=== PATIENT | male | born 1975 | race Caucasian/White ===

== ENCOUNTER 2017-05-17 11:57 | Inpatient (IN) | payer OTHER ==
[2017-05-17 14:43] VITALS: BMI 21.1
--- NOTE | 2017-05-17 15:04 | HP ---
Admission ROS [facility] Chief Complaint: i am here for rehab from alcohol,cocaine,marijuana,pcp Allergies/Adverse Reactions: Allergies Allergy/AdvReac Type Severity Reaction Status Date / Time shellfish derived Allergy Severe Difficulty Verified 05/17/17 14:40 [Shellfish Derived] Breathing History of Present Illness: this 42 years old male with alcohol,cocaine,cannabis dependence,pcp abused, for rehab,last treatment rehab 05/06 hiv since 1999 nicotine dependence weight loss seeking rehab Exam Limitations: No Limitations - Ebola screening Have you traveled outside of the country in the last 21 days: No Have you had contact with anyone from an Ebola affected area: No Have you been sick,other than usual withdrawal symptoms: No Do you have a fever: No - Review of Systems Constitutional: No Symptoms Reported EENT: reports: No Symptoms Reported, Other (ecchymosis of right orbit with subconjunctival hemorrhage lateral aspct of right eye) Respiratory: reports: Shortness of Breath Cardiac: reports: No Symptoms Reported GI: reports: No Symptoms Reported : reports: No Symptoms Reported Musculoskeletal: reports: No Symptoms Reported Integumentary: reports: No Symptoms Reported Neuro: reports: No Symptoms reported Endocrine: reports: No Symptoms Reported Hematology: reports: No Symptoms Reported, Other (hiv) Psychiatric: reports: No Sypmtoms Reported (bipolar disorder depression), Judgement Intact, Mood/Affect Appropiate, Orientated x3 Patient History - Patient Medical History Hx Anemia: No Hx Asthma: Yes (on albuterol inhaler) Hx Chronic Obstructive Pulmonary Disease (COPD): No Hx Cancer: No Hx Cardiac Disorders: No Hx Congestive Heart Failure: No Hx Hypertension: No Hx Hypercholesterolemia: No Hx Pacemaker: No HX Cerebrovascular Accident: No Hx Seizures: No Hx Dementia: No Hx Diabetes: No Hx Gastrointestinal Disorders: No Hx Liver Disease: No Hx Genitourinary Disorders: No Hx Sexually Transmitted Disorders: No Hx Renal Disease (ESRD): No Hx Thyroid Disease: No Hx Human Immunodeficiency Virus (HIV): Yes (since 1996) Hx Hepatitis C: No Hx Depression: Yes Hx Suicide Attempt: No Hx Bipolar Disorder: No Hx Schizophrenia: No Other Medical History: no sucidal,no homicidal - Patient Surgical History Past Surgical History: No Hx Neurologic Surgery: No Hx Cataract Extraction: No Hx Cardiac Surgery: No Hx Lung Surgery: No Hx Breast Surgery: No Hx Breast Biopsy: No Hx Abdominal Surgery: No Hx Appendectomy: No Hx Cholecystectomy: No Hx Genitourinary Surgery: No Hx Section: No Hx Orthopedic Surgery: No Anesthesia Reaction: No - PPD History Previous Implant?: Yes Documented Results: Negative w/o proof Date: 12/20/11 PPD to be Administered?: Yes - Smoking Cessation Smoking history: Current every day smoker Have you smoked in the past 12 months: Yes Aproximately how many cigarettes per day: 20 Hx Chewing Tobacco Use: No Initiated information on smoking cessation: Yes 'Breaking Loose' booklet given: 05/17/17 - Substances Abused Alcohol Route: Oral Frequency: 3-6 times per week Amount used: 1 P[place]OD[place] Age of first use: 21 Date of Last Use: 05/15/17 PCP Route: Smoking Frequency: Daily Amount used: $20 Age of first use: 37 Date of Last Use: 05/15/17 Crack Route: Smoking Frequency: Daily Amount used: $50 Age of first use: 27 Date of Last Use: 05/15/17 Marijuana/Hashish Route: Smoking Frequency: Daily Amount used: $40 Age of first use: 17 Date of Last Use: 05/16/17 CRYSTAL METH Route: Smoking Frequency: Daily Amount used: $60 Age of first use: 40 Date of Last Use: 05/10/17 Family Disease History - Family Disease History Family History: Denies Admission Physical Exam BHS - Vital Signs Vital Signs: Vital Signs - 24 hr 05/17/17 14:42 Temperature 97.4 F L Pulse Rate 101 H Respiratory 20 Rate Blood Pressure 115/77 - Physical General Appearance: Yes: Within Normal Limits HEENTM: Yes: BRANNON, Pharynx Normal, Other (ecchymosir of right orbit subconjunctival hemorrhage of laterl aspect of right eye) Respiratory: Yes: Wheezing Neck: Yes: Within Normal Limits, Supple, Trachea in good position Breast: Yes: Within Normal Limits Cardiology: Yes: Within Normal Limits, Regular Rhythm, Regular Rate, S1, S2 Abdominal: Yes: Within Normal Limits, Normal Bowel Sounds, Non Tender, Soft Genitourinary: Yes: Within Normal Limits Back: Yes: Within Normal Limits Musculoskeletal: Yes: full range of Motion, Back pain, Muscle Pain Extremities: Yes: Within Normal Limits Neurological: Yes: wall taper II-XII NML intact, Fully Oriented, Alert, Motor Strength 5/5 Integumentary: Yes: Within Normal Limits Lymphatic: Yes: Within Normal Limits - Diagnostic (1) Alcohol dependence Current Visit: Yes Status: Acute (2) Cocaine dependence Current Visit: Yes Status: Acute (3) Cannabis dependence Current Visit: Yes Status: Acute (4) PCP abuse Current Visit: Yes Status: Acute (5) HIV (human immunodeficiency virus infection) Current Visit: Yes Status: Acute (6) Weight loss Current Visit: Yes Status: Acute (7) Bipolar disorder Current Visit: Yes Status: Acute (8) Depression Current Visit: Yes Status: Acute (9) Traumatic ecchymosis of right orbit Current Visit: Yes Status: Acute (10) Subconjunctival hemorrhage of right eye Current Visit: Yes Status: Acute Cleared for Admission BHS - Detox or Rehab Claeared for Rehab Admission: Yes S Breath Alcohol Content Breath Alcohol Content: 0 Urine Drug Screen - Results Drug Screen Negative: No Urine Drug Screen Results: THC-Marijuana, ANJELICA-Cocaine, PCP-Phencyclidine, TCA- Tricyclic Antidepress Inpatient Rehab Admission - Initial Determination Are CD services needed?: Yes Free of communicable disease: Yes Not in need of hospitalization: Yes - Rehab Admission Criteria Poor recovery environment: Yes Comorbidities: Yes Patient is meeting Inpatient Rehab admission criteria:: Yes
[2017-05-17] MEDS ORDERED: MAGNESIUM HYDROX 2400MG/30ML ORAL SUSPENSION 30 ML CUP PO PRN (15:21)
[2017-05-17] MEDS ORDERED: guaiFENesin/D-METHORPHAN HB 10 ML UNIT-DOSE CUPS PO PRN (15:21)
[2017-05-17] MEDS ORDERED: IBUPROFEN 400 MG TABLET (FP) PO PRN (15:21)
[2017-05-17] MEDS ORDERED: LOPERAMIDE HCL 2 MG CAPSULE PO PRN (15:21)
[2017-05-17] MEDS ORDERED: MAG HYDROX/AL HYDROX/SIMETH 30 ML UNIT-DOSE CUP PO PRN (15:21)
[2017-05-17] MEDS ORDERED: MENTHOL/PHENOL 1 EACH UD MM PRN (15:21)
[2017-05-17] MEDS ORDERED: hydrOXYzine PAMOATE 50 MG CAPSULE (FP) PO PRN (15:21)
[2017-05-17] MEDS ORDERED: P-EPHED 60MG/TRIPROLIDI 2.5MG TABLET PO PRN (15:21)
[2017-05-17] MEDS ORDERED: NICOTINE POLACRILEX 2 MG GUM BUC PRN (15:21)
[2017-05-17] MEDS ORDERED: MAGNESIUM CITRATE 300 ML BOTTLE PO PRN (15:21)
[2017-05-17] MEDS ORDERED: TUBERCULIN PPD 5 TU/0.1ML VIAL ID ONE ×2 (20:30→23:32)
[2017-05-17] MEDS: diphenhydrAMINE HCL 50 MG CAPSULE PO PRN (21:44)
[2017-05-17] MEDS: ACETAMINOPHEN 325 MG TABLET (FP) PO PRN (21:46)
[2017-05-17] MEDS ORDERED: THIAMINE HCL 100 MG TABLET (FP) PO SCH (22:00)
[2017-05-17 22:04] LABS: URINE APPEARANCE CLOUDY; URINE BILIRUBIN NEGATIVE (NEGATIVE); URINE BLOOD NEGATIVE (NEGATIVE); URINE COLOR YELLOW; URINE GLUCOSE (UA) NEGATIVE (NEGATIVE); URINE KETONE NEGATIVE (NEGATIVE); URINE LEUK ESTERASE NEGATIVE (NEGATIVE); URINE NITRITE NEGATIVE (NEGATIVE); URINE PROTEIN NEGATIVE (NEGATIVE); URINE UROBILINOGEN NEGATIVE mg/dL (0.2-1.0)
[2017-05-17] MEDS ORDERED: ALBUTEROL SO4 6.7 GM HFA INHALER IH PRN (23:27)
[2017-05-18] MEDS: diphenhydrAMINE HCL 50 MG CAPSULE PO PRN (00:50)
[2017-05-18] MEDS: ACETAMINOPHEN 325 MG TABLET (FP) PO PRN (07:07)
[2017-05-18 07:24] VITALS: BP 113/60; PULSE 88; TEMP 97.8
[2017-05-18] MEDS ORDERED: ALBUTEROL SO4 6.7 GM HFA INHALER IH PRN (07:55)
--- NOTE | 2017-05-18 09:54 | EKG ---
Test Reason : Blood Pressure : / mmHG Vent. Rate : 097 BPM Atrial Rate : 097 BPM P-R Int : 148 ms QRS Dur : 082 ms QT Int : 354 ms P-R-T Axes : 074 084 068 degrees QTc Int : 449 ms NORMAL SINUS RHYTHM NONSPECIFIC ST AND T WAVE ABNORMALITY ABNORMAL ECG NO PREVIOUS ECGS AVAILABLE Confirmed by PATRICIA LANCASTER MD ([id number]) on 05/18/2017 9:53:57 AM Referred By: Mahin TOVAR Confirmed By:PATRICIA LANCASTER MD
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
[2017-05-18] MEDS ORDERED: EMTRICITABINE 200MG/TENOFOVIR 300MG PO SCH (10:00)
[2017-05-18] MEDS ORDERED: QUEtiapine FUMARATE 300 MG TABLET PO SCH (10:00)
[2017-05-18] MEDS ORDERED: PRENATAL VITAMINS W/ FOLIC ACID TABLET (FP) PO SCH (10:00)
[2017-05-18] MEDS ORDERED: PANTOPRAZOLE 40 MG TABLET (FP) PO SCH (11:30)
[2017-05-18] MEDS ORDERED: NAPROXEN 500 MG TABLET (FP) PO SCH (11:30)
[2017-05-18] MEDS ORDERED: PNEUMOC 13-VAL CONJ-DIP CRM/PF 0.5 ML DISP.SYRIN IM ONE (12:00)
[2017-05-18 12:50] LABS: MCH 29.8 pg (25.7-33.7); MCHC 32.6 g/dl (32.0-35.9); MEAN CELL VOLUME 91.5 fl (80-96); MEAN PLT VOLUME 9.7 fl (7.5-11.1); PLATELET COUNT 121 K/MM3 (134-434); RDW 14.9 % (11.9-15.9); WHITE BLOOD COUNT 4.2 K/mm3 (4.0-10.0)
--- NOTE | 2017-05-18 12:55 | PN ---
[facility] Progress Note Note: Patient was discharged administratively, please see my admission notes
[2017-05-18 13:10] LABS: ALBUMIN 3.4 g/dl (3.4-5.0); ANION GAP 10 (8-16); CALCIUM 8.5 mg/dL (8.5-10.1); CO2 22 mmol/L (21-32); GLUCOSE,RANDOM 95 mg/dL (74-106)
[2017-05-18 13:13] LABS: ALK PHOS 87 U/L (45-117); BILIRUBIN,TOTAL 0.5 mg/dL (0.2-1.0); CREATININE 0.9 mg/dL (0.7-1.3); SGOT/AST 19 U/L (15-37); SGPT/ALT 29 U/L (12-78); TOT PROT 7.4 g/dl (6.4-8.2)
[2017-05-18] MEDS ORDERED: CYCLOBENZAPRINE HCL 5 MG TABLET PO SCH (14:00)
== END 2017-05-18 10:27 | disposition home or self-care (01) | DRG 772 ==
LOC: YASAS 11:57 → Y5N 15:26
PROVIDERS: ADMIT Psychiatry & Neurology Psychiatry; ATTEND Psychiatry & Neurology Psychiatry
PROC: HZ42ZZZ Group Counseling for Substance Abuse Treatment, Cognitive-Behavioral (ICD-10-PCS; principal; 2017-05-17)
DX: F19.20 Other psychoactive substance dependence, uncomplicated (principal); F12.20 Cannabis dependence, uncomplicated; F16.10 Hallucinogen abuse, uncomplicated; F31.9 Bipolar disorder, unspecified; S05.11XA Contusion of eyeball and orbital tissues, right eye, initial encounter; H11.31 Conjunctival hemorrhage, right eye; Z21 Asymptomatic human immunodeficiency virus [HIV] infection status; R63.4 Abnormal weight loss; Z68.21 Body mass index [BMI] 21.0-21.9, adult; F91.9 Conduct disorder, unspecified
CPT/HCPCS: 36415; 80053; 81003; 85027; 86593; 93005; 93010

== ENCOUNTER 2017-08-12 15:39 | Inpatient (IN) | payer OTHER ==
[2017-08-12 16:01] VITALS: BMI 24.9
--- NOTE | 2017-08-12 16:56 | HP ---
CIWA Score - CIWA Score Nausea/Vomitin Muscle Tremors: 4-Moderate,w/Arms Extend Anxiety: 4-Mod. Anxious/Guarded Agitation: 4-Moderately Restless Paroxysmal Sweats: 3 Orientation: 0-Oriented Tacttile Disturbances: 0-None Auditory Disturbances: 0-None Visual Disturbances: 0-None Headache: 0-None Present CIWA-Ar Total Score: 17 Admission ROS BHS - HPI Chief Complaint: Withdrawal sx. Allergies/Adverse Reactions: Allergies Allergy/AdvReac Type Severity Reaction Status Date / Time shellfish derived Allergy Severe Difficulty Verified 05/17/17 14:40 [Shellfish Derived] Breathing silk Allergy Intermediate Swelling Uncoded 08/12/17 16:29 History of Present Illness: 42 y/o man with a long hx. of alcoholism is admitted for detox. Pt. has been in previous detox denies significant sobriety. He was at [facility] ED last night. Exam Limitations: No Limitations - Ebola screening Have you traveled outside of the country in the last 21 days: No Have you had contact with anyone from an Ebola affected area: No Have you been sick,other than usual withdrawal symptoms: No Do you have a fever: No - Review of Systems Constitutional: Diaphoresis EENT: reports: No Symptoms Reported Respiratory: reports: No Symptoms reported GI: reports: Nausea, Abdominal cramping : reports: No Symptoms Reported Musculoskeletal: reports: No Symptoms Reported Integumentary: reports: Sweating Neuro: reports: Tremors Endocrine: reports: No Symptoms Reported Hematology: reports: No Symptoms Reported Psychiatric: reports: No Sypmtoms Reported Other Systems: Reviewed and Negative Patient History - Patient Medical History Hx Anemia: No Hx Asthma: Yes Hx Chronic Obstructive Pulmonary Disease (COPD): No Hx Cancer: No Hx Cardiac Disorders: No Hx Congestive Heart Failure: No Hx Hypertension: No Hx Hypercholesterolemia: No Hx Pacemaker: No HX Cerebrovascular Accident: No Hx Seizures: No Hx Dementia: No Hx Diabetes: No Hx Gastrointestinal Disorders: No Hx Liver Disease: No Hx Genitourinary Disorders: No Hx Sexually Transmitted Disorders: No Hx Renal Disease (ESRD): No Hx Thyroid Disease: No Hx Human Immunodeficiency Virus (HIV): Yes (since 1996) Hx Hepatitis C: No Hx Depression: Yes Hx Suicide Attempt: Yes (try to OD) Hx Bipolar Disorder: Yes Hx Schizophrenia: No - Patient Surgical History Past Surgical History: No Hx Neurologic Surgery: No Hx Cataract Extraction: No Hx Cardiac Surgery: No Hx Lung Surgery: No Hx Breast Surgery: No Hx Breast Biopsy: No Hx Abdominal Surgery: No Hx Appendectomy: No Hx Cholecystectomy: No Hx Genitourinary Surgery: No Hx Section: No Hx Orthopedic Surgery: No Anesthesia Reaction: No - PPD History Previous Implant?: Yes Documented Results: Negative w/proof Implanted On Prior [facility] Admission?: Yes Date: 12/20/11 Results: 0 mm PPD to be Administered?: Yes - Smoking Cessation Smoking history: Current every day smoker Have you smoked in the past 12 months: Yes Aproximately how many cigarettes per day: 10 Hx Chewing Tobacco Use: No Initiated information on smoking cessation: Yes 'Breaking Loose' booklet given: 08/12/17 - Substance & Tx. History Hx Alcohol Use: Yes Hx Substance Use: Yes Substance Use Type: Alcohol, Cocaine Hx Substance Use Treatment: Yes (Detox [facility] did not complete left AMA) - Substances Abused Alcohol Route: Oral Frequency: Daily Amount used: beer(6pk-12 oz) Age of first use: 26 Date of Last Use: 08/12/17 Cocaine Route: Smoking Frequency: Daily Amount used: $50 Age of first use: 26 Date of Last Use: 08/10/17 Family Disease History - Family Disease History Family Disease History: Diabetes: Mother (HTN), Brother (HTN), [place]: Grandparent ( Prostate), Other: Mother, Brother Admission Physical Exam BHS - Vital Signs Vital Signs: Vital Signs - 24 hr 08/12/17 15:59 Temperature 98.3 F Pulse Rate 115 H Respiratory 20 Rate Blood Pressure 141/79 - Physical General Appearance: Yes: Tremorous, Sweating, Anxious HEENTM: Yes: Within Normal Limits Respiratory: Yes: Chest Non-Tender, Lungs Clear, Normal Breath Sounds Neck: Yes: Supple Breast: Yes: Breast Exam Deferred Cardiology: Yes: Regular Rhythm, Regular Rate, S1, S2 Abdominal: Yes: Normal Bowel Sounds, Non Tender, Flat Genitourinary: Yes: Within Normal Limits Back: Yes: Within Normal Limits Musculoskeletal: Yes: Within Normal Limits Extremities: Yes: Tremors Neurological: Yes: Fully Oriented, Alert Integumentary: Yes: Diaphoresis Lymphatic: Yes: Within Normal Limits - Diagnostic (1) Cocaine dependence, uncomplicated Current Visit: Yes Status: Acute (2) Alcohol dependence with uncomplicated withdrawal Current Visit: Yes Status: Acute (3) Asthma Current Visit: Yes Status: Acute Qualifiers: Asthma severity: mild Asthma persistence: intermittent Asthma complication type: uncomplicated Qualified Code(s): J45.20 - Mild intermittent asthma, uncomplicated Cleared for Admission BHS - Detox or Rehab S Level of Care: Medically Managed Detox Regimen/Protocol: Librium BHS Breath Alcohol Content Breath Alcohol Content: 0 Urine Drug Screen - Results Drug Screen Negative: No Urine Drug Screen Results: ANJELICA-Cocaine
[2017-08-12] MEDS ORDERED: LOPERAMIDE HCL 2 MG CAPSULE PO PRN (17:04)
[2017-08-12] MEDS ORDERED: MAGNESIUM HYDROX 2400MG/30ML ORAL SUSPENSION 30 ML CUP PO PRN (17:04)
[2017-08-12] MEDS ORDERED: MAGNESIUM CITRATE 300 ML BOTTLE PO PRN (17:04)
[2017-08-12] MEDS ORDERED: NICOTINE POLACRILEX 2 MG GUM BUC PRN (17:04)
[2017-08-12] MEDS ORDERED: P-EPHED 60MG/TRIPROLIDI 2.5MG TABLET PO PRN (17:04)
[2017-08-12] MEDS ORDERED: IBUPROFEN 400 MG TABLET (FP) PO PRN (17:04)
[2017-08-12] MEDS ORDERED: MAG HYDROX/AL HYDROX/SIMETH 30 ML UNIT-DOSE CUP PO PRN (17:04)
[2017-08-12] MEDS ORDERED: MENTHOL/PHENOL 1 EACH UD MM PRN (17:04)
[2017-08-12] MEDS ORDERED: guaiFENesin/D-METHORPHAN HB 10 ML UNIT-DOSE CUPS PO PRN (17:04)
[2017-08-12] MEDS ORDERED: hydrOXYzine PAMOATE 50 MG CAPSULE (FP) PO PRN (17:04)
[2017-08-12] MEDS ORDERED: ACETAMINOPHEN 325 MG TABLET (FP) PO PRN (17:04)
[2017-08-12] MEDS ORDERED: ALBUTEROL SO4 18 GM HFA INHALER IH PRN (17:07)
[2017-08-12] MEDS: chlordiazePOXIDE HCL 25 MG CAPSULE PO PRN (18:41)
[2017-08-12] MEDS: NICOTINE 21 MG/24 HOURS TOPICAL PATCH TD SCH (18:41)
[2017-08-12 19:33] LABS: URINE APPEARANCE CLEAR; URINE BILIRUBIN NEGATIVE (NEGATIVE); URINE BLOOD NEGATIVE (NEGATIVE); URINE COLOR LTYELLOW; URINE GLUCOSE (UA) NEGATIVE (NEGATIVE); URINE KETONE NEGATIVE (NEGATIVE); URINE LEUK ESTERASE NEGATIVE (NEGATIVE); URINE NITRITE NEGATIVE (NEGATIVE); URINE PROTEIN NEGATIVE (NEGATIVE); URINE UROBILINOGEN NEGATIVE mg/dL (0.2-1.0)
[2017-08-12] MEDS: THIAMINE HCL 100 MG TABLET (FP) PO SCH (22:21)
[2017-08-12] MEDS: chlordiazePOXIDE HCL 25 MG CAPSULE PO SCH (22:22)
[2017-08-12 22:43] LABS: URINE LEUK ESTERASE Negative (NEGATIVE)
[2017-08-13] MEDS: chlordiazePOXIDE HCL 25 MG CAPSULE PO SCH ×5 (05:54→23:03)
[2017-08-13] MEDS: NICOTINE 21 MG/24 HOURS TOPICAL PATCH TD SCH (10:30)
[2017-08-13] MEDS: PRENATAL VITAMINS W/ FOLIC ACID TABLET (FP) PO SCH (10:30)
--- NOTE | 2017-08-13 10:43 | CONSULT ---
[facility] Psychiatric Consult - Data Date of interview: 08/13/17 Admission source: [facility] Identifying data: This is 42 years old male with history of Bipolar dsiordedr, history of psychiatric [id number], [id number] with: Alcohol, Nicotine Substance Abuse History: - Smoking Cessation. Smoking history: Current every day smoker. Have you smoked in the past 12 months: Yes. Aproximately how many cigarettes per day: 10. As per computer Cocaine and PCP abuse as well. Hx Chewing Tobacco Use: No. Initiated information on smoking cessation: Yes. ' Breaking Loose' booklet given: 08/12/17. - Substance & Tx. History. Hx Alcohol Use: Yes. Hx Substance Use: Yes. Substance Use Type: Alcohol, Cocaine. Hx Substance Use Treatment: Yes (Detox [facility] did not complete left AMA) . - Substances Abused. Alcohol. Route: Oral. Frequency: Daily. Amount used: beer(6pk-12 oz). Age of first use: 26. Date of Last Use: 08/12/17 Medical History: Asthma Psychiatric History: Patient reports hiustory of Bipolar Disorder, Borderline personality with most recent [id number] admission on about few yars ago at [facility] due to hearing voices and safety. Patient reports taking prior to admission: [place] 300mg pop bid. Seroquel 200mg ppo bid, as per computer Seroquel 600mg po bid(?) Physical/Sexual Abuse/Trauma History: Denies Additional Comment: [place] 300mg pop bid. Seroquel 200mg ppo bid Mental Status Exam - Mental Status Exam Alert and Oriented to: Person Cognitive Function: Fair Patient Appearance: Unkempt Mood: Anxious Affect: Mood Congruent Patient Behavior: Talkative, Cooperative Speech Pattern: Appropriate Voice Loudness: Normal Thought Process: Goal Oriented Thought Disorder: Being Controlled Hallucinations: Denies Suicidal Ideation: Denies Homicidal Ideation: Denies Insight/Judgement: Fair Sleep: Difficulty falling asleep Appetite: Weight loss Muscle strength/Tone: Normal Gait/Station: Normal Additional Comments: [place] 300mg pop bid. Seroquel 200mg ppo bid Psychiatric Findings - Problem List ([place] 1, 2,3) (1) Bipolar I disorder Current Visit: Yes Status: Acute (2) Alcohol dependence with uncomplicated withdrawal Current Visit: Yes Status: Acute (3) Cocaine dependence, uncomplicated Current Visit: Yes Status: Acute (4) Alcohol dependence Current Visit: No Status: Acute (5) Cannabis dependence Current Visit: No Status: Acute (6) Cocaine dependence Current Visit: No Status: Acute (7) PCP abuse Current Visit: No Status: Acute (8) Weight loss Current Visit: No Status: Acute (9) H/O borderline personality disorder Current Visit: Yes Status: Acute - Initial Treatment Plan Initial Treatment Plan: [place] 300mg pop bid. Seroquel 200mg ppo bid
[2017-08-13] MEDS ORDERED: QUEtiapine FUMARATE 100 MG TABLET (FP) PO STA (11:00)
[2017-08-13] MEDS ORDERED: LITHIUM CARBONATE 300 MG CAPSULE (FP) PO STA (11:01)
[2017-08-13] MEDS: QUEtiapine FUMARATE 200 MG TABLET PO SCH ×2 (11:13→21:26)
[2017-08-13] MEDS: LITHIUM CARBONATE 300 MG CAPSULE (FP) PO SCH ×2 (11:13→21:26)
[2017-08-13 11:29] LABS: MCH 29.1 pg (25.7-33.7); MCHC 32.5 g/dl (32.0-35.9); MEAN CELL VOLUME 89.3 fl (80-96); PLATELET COUNT 85 K/MM3 (134-434); RDW 14.1 % (11.9-15.9); WHITE BLOOD COUNT 3.3 K/mm3 (4.0-10.0)
[2017-08-13 11:38] LABS: ALBUMIN 3.4 g/dl (3.4-5.0); ANION GAP 9 (8-16); BILIRUBIN,TOTAL 0.3 mg/dL (0.2-1.0); CALCIUM 8.8 mg/dL (8.5-10.1); CO2 26 mmol/L (21-32); CREATININE 1.1 mg/dL (0.7-1.3); GLUCOSE,RANDOM 84 mg/dL (74-106); SGOT/AST 17 U/L (15-37); SGPT/ALT 26 U/L (12-78); TOT PROT 7.4 g/dl (6.4-8.2)
[2017-08-13 11:39] LABS: ALK PHOS 89 U/L (45-117)
--- NOTE | 2017-08-13 15:16 | PN ---
S CIWA - CIWA Score Nausea/Vomitin Muscle Tremors: 4-Moderate,w/Arms Extend Anxiety: 4-Mod. Anxious/Guarded Agitation: 4-Moderately Restless Paroxysmal Sweats: 3 Orientation: 0-Oriented Tacttile Disturbances: 0-None Auditory Disturbances: 0-None Visual Disturbances: 0-None Headache: 1-Very Mild CIWA-Ar Total Score: 19 BHS Progress Note (SOAP) Subjective: Nausea, tremor, diarrhea, interrupted sleep, anxious. Patient requesting to take whole tablets/capsules instead of opening them. As per patient, since childhood, he has been unable to take any pills that is open where the powder etc is exposed because it causes his throat to close up. Objective: 08/13/17 15:15 Last Vital Signs Temp Pulse Resp BP Pulse Ox 96.9 F L 106 H 18 135/87 08/13/17 09:39 08/13/17 09:39 08/13/17 09:39 08/13/17 09:39 Laboratory Tests 08/12/17 08/13/17 08/13/17 18:00 07:45 07:45 WBC 3.3 L RBC 4.33 Hgb 12.6 Hct 38.7 MCV 89.3 MCH 29.1 MCHC 32.5 RDW 14.1 Plt Count 85 L D MPV 10.0 Sodium 142 Potassium 4.1 D Chloride 107 Carbon Dioxide 26 Anion Gap 9 BUN 22 H D Creatinine 1.1 D Creat Clearance w eGFR > 60 Random Glucose 84 Calcium 8.8 Total Bilirubin 0.3 D AST 17 ALT 26 Alkaline Phosphatase 89 Total Protein 7.4 Albumin 3.4 Urine Color Ltyellow Urine Appearance Clear Urine pH 5.0 Ur Specific [place] 1.020 Urine Protein Negative Urine Glucose (UA) Negative Urine Ketones Negative Urine Blood Negative Urine Nitrite Negative Urine Bilirubin Negative Urine Urobilinogen Negative Ur Leukocyte Esterase Negative RPR Titer 08/13/17 07:45 WBC RBC Hgb Hct MCV MCH MCHC RDW Plt Count MPV Sodium Potassium Chloride Carbon Dioxide Anion Gap BUN Creatinine Creat Clearance w eGFR Random Glucose Calcium Total Bilirubin AST ALT Alkaline Phosphatase Total Protein Albumin Urine Color Urine Appearance Urine pH Ur Specific [place] Urine Protein Urine Glucose (UA) Urine Ketones Urine Blood Urine Nitrite Urine Bilirubin Urine Urobilinogen Ur Leukocyte Esterase RPR Titer Nonreactive Labs noted: bun 22 Assessment: 08/13/17 15:15 Withdrawal symptoms Noted with azotemia Plan: Continue detox Azotemia: encouraged to drink lots of water for hydration
--- NOTE | 2017-08-13 15:27 | EKG ---
Test Reason : Blood Pressure : / mmHG Vent. Rate : 093 BPM Atrial Rate : 093 BPM P-R Int : 154 ms QRS Dur : 080 ms QT Int : 360 ms P-R-T Axes : 070 070 050 degrees QTc Int : 447 ms NORMAL SINUS RHYTHM NORMAL ECG WHEN COMPARED WITH ECG OF 17-MAY-2017 22:13, ST LESS ELEVATED IN INFERIOR LEADS Confirmed by SAUL BERNARDO MD ([id number]) on 08/13/2017 3:27:14 PM Referred By: [place] Confirmed By:SAUL BERNARDO MD
[2017-08-13] MEDS: THIAMINE HCL 100 MG TABLET (FP) PO SCH (21:26)
[2017-08-14] MEDS: chlordiazePOXIDE HCL 25 MG CAPSULE PO SCH ×3 (05:59→17:29)
[2017-08-14] MEDS: QUEtiapine FUMARATE 200 MG TABLET PO SCH ×2 (10:13→22:09)
[2017-08-14] MEDS: PRENATAL VITAMINS W/ FOLIC ACID TABLET (FP) PO SCH (10:13)
[2017-08-14] MEDS: NICOTINE 21 MG/24 HOURS TOPICAL PATCH TD SCH (10:13)
[2017-08-14] MEDS: LITHIUM CARBONATE 300 MG CAPSULE (FP) PO SCH ×2 (10:13→22:10)
[2017-08-14] MEDS ORDERED: ONDANSETRON *ODT* 4 MG TABLET SL PRN (10:54)
--- NOTE | 2017-08-14 11:01 | PN ---
[facility] CIWA - CIWA Score Nausea/Vomitin Muscle Tremors: 3 Anxiety: 4-Mod. Anxious/Guarded Agitation: 0-Normal Activity Paroxysmal Sweats: 3 Orientation: 0-Oriented Tacttile Disturbances: 2-Mild Itch/Numbness/Burn Auditory Disturbances: 0-None Visual Disturbances: 2-Mild Sensitivity Headache: 0-None Present CIWA-Ar Total Score: 17 BHS Progress Note (SOAP) Subjective: Nausea, Diarrhea, Interrupted Sleep, Fatigue, Sweating. Objective: PT. A & O X 3. NO ACUTE DISTRESS. 08/14/17 10:57 Vital Signs Temperature 98.4 F 08/14/17 09:08 Pulse Rate 119 H 08/14/17 09:08 Respiratory Rate 18 08/14/17 09:08 Blood Pressure 134/86 08/14/17 09:08 O2 Sat by Pulse Oximetry (%) Laboratory Tests 08/12/17 08/13/17 08/13/17 18:00 07:45 07:45 WBC 3.3 L RBC 4.33 Hgb 12.6 Hct 38.7 MCV 89.3 MCH 29.1 MCHC 32.5 RDW 14.1 Plt Count 85 L D MPV 10.0 Sodium 142 Potassium 4.1 D Chloride 107 Carbon Dioxide 26 Anion Gap 9 BUN 22 H D Creatinine 1.1 D Creat Clearance w eGFR > 60 Random Glucose 84 Calcium 8.8 Total Bilirubin 0.3 D AST 17 ALT 26 Alkaline Phosphatase 89 Total Protein 7.4 Albumin 3.4 Urine Color Ltyellow Urine Appearance Clear Urine pH 5.0 Ur Specific [place] 1.020 Urine Protein Negative Urine Glucose (UA) Negative Urine Ketones Negative Urine Blood Negative Urine Nitrite Negative Urine Bilirubin Negative Urine Urobilinogen Negative Ur Leukocyte Esterase Negative RPR Titer 08/13/17 07:45 WBC RBC Hgb Hct MCV MCH MCHC RDW Plt Count MPV Sodium Potassium Chloride Carbon Dioxide Anion Gap BUN Creatinine Creat Clearance w eGFR Random Glucose Calcium Total Bilirubin AST ALT Alkaline Phosphatase Total Protein Albumin Urine Color Urine Appearance Urine pH Ur Specific [place] Urine Protein Urine Glucose (UA) Urine Ketones Urine Blood Urine Nitrite Urine Bilirubin Urine Urobilinogen Ur Leukocyte Esterase RPR Titer Nonreactive LABS NOTED. PATIENT HAS HAD LOW PLATELETS LEVEL ON PREVIOUS ADMISSIONS. 08/14/17 10:59 Assessment: 08/14/17 10:57 WITHDRAWAL SYMPTOMS. LEUKOPENIA. THROMBOCYTOPENIA. DEHYDRATION. 08/14/17 11:00 Plan: CONTINUE DETOX. INCREASE DAILY PO FLUID INTAKE. PRN IMMODIUM FOR DIARRHEA. PRN ZOFRAN SL FOR NAUSEA / VOMITING.
[2017-08-14] MEDS: chlordiazePOXIDE HCL 25 MG CAPSULE PO PRN (17:16)
[2017-08-14] MEDS: THIAMINE HCL 100 MG TABLET (FP) PO SCH (22:09)
[2017-08-14] MEDS: chlordiazePOXIDE 5 MG CAPSULE PO SCH (22:10)
[2017-08-15] MEDS: chlordiazePOXIDE 5 MG CAPSULE PO SCH ×3 (05:49→17:10)
[2017-08-15] MEDS: PRENATAL VITAMINS W/ FOLIC ACID TABLET (FP) PO SCH (10:35)
[2017-08-15] MEDS: QUEtiapine FUMARATE 200 MG TABLET PO SCH ×2 (10:35→22:10)
[2017-08-15] MEDS: NICOTINE 21 MG/24 HOURS TOPICAL PATCH TD SCH (10:35)
[2017-08-15] MEDS: LITHIUM CARBONATE 300 MG CAPSULE (FP) PO SCH ×2 (10:35→22:10)
--- NOTE | 2017-08-15 11:26 | PN ---
BHS Progress Note (SOAP) Subjective: Diarrhea, Stomach Cramping, Sweating, Body Aches, Tremors, Nausea. Objective: PT. A & O X 3, OBSERVED AMBULATING ON UNIT. NO ACUTE DISTRESS. 08/15/17 11:24 Vital Signs Temperature 96.4 F L 08/15/17 09:38 Pulse Rate 105 H 08/15/17 09:38 Respiratory Rate 20 08/15/17 09:38 Blood Pressure 132/90 08/15/17 09:38 O2 Sat by Pulse Oximetry (%) Laboratory Tests 08/12/17 08/13/17 08/13/17 18:00 07:45 07:45 WBC 3.3 L RBC 4.33 Hgb 12.6 Hct 38.7 MCV 89.3 MCH 29.1 MCHC 32.5 RDW 14.1 Plt Count 85 L D MPV 10.0 Sodium 142 Potassium 4.1 D Chloride 107 Carbon Dioxide 26 Anion Gap 9 BUN 22 H D Creatinine 1.1 D Creat Clearance w eGFR > 60 Random Glucose 84 Calcium 8.8 Total Bilirubin 0.3 D AST 17 ALT 26 Alkaline Phosphatase 89 Total Protein 7.4 Albumin 3.4 Urine Color Ltyellow Urine Appearance Clear Urine pH 5.0 Ur Specific [place] 1.020 Urine Protein Negative Urine Glucose (UA) Negative Urine Ketones Negative Urine Blood Negative Urine Nitrite Negative Urine Bilirubin Negative Urine Urobilinogen Negative Ur Leukocyte Esterase Negative RPR Titer 08/13/17 07:45 WBC RBC Hgb Hct MCV MCH MCHC RDW Plt Count MPV Sodium Potassium Chloride Carbon Dioxide Anion Gap BUN Creatinine Creat Clearance w eGFR Random Glucose Calcium Total Bilirubin AST ALT Alkaline Phosphatase Total Protein Albumin Urine Color Urine Appearance Urine pH Ur Specific [place] Urine Protein Urine Glucose (UA) Urine Ketones Urine Blood Urine Nitrite Urine Bilirubin Urine Urobilinogen Ur Leukocyte Esterase RPR Titer Nonreactive LABS NOTED. Assessment: 08/15/17 11:24 WITHDRAWAL SYMPTOMS. Plan: CONTINUE DETOX. INCREASE DAILY PO FLUID INTAKE. PRN ZOFRAN SL FOR NAUSEA. PRN IMMODIUM PO FOR DIARRHEA.
[2017-08-15] MEDS: chlordiazePOXIDE HCL 10 MG CAPSULE PO SCH (22:10)
[2017-08-15] MEDS: THIAMINE HCL 100 MG TABLET (FP) PO SCH (22:10)
[2017-08-16] MEDS: chlordiazePOXIDE HCL 10 MG CAPSULE PO SCH ×2 (06:11→10:00)
[2017-08-16 09:21] VITALS: BP 126/83; PULSE 116; TEMP 96
[2017-08-16] MEDS: NICOTINE 21 MG/24 HOURS TOPICAL PATCH TD SCH (10:00)
[2017-08-16] MEDS: LITHIUM CARBONATE 300 MG CAPSULE (FP) PO SCH (10:00)
[2017-08-16] MEDS: QUEtiapine FUMARATE 200 MG TABLET PO SCH (10:00)
[2017-08-16] MEDS: PRENATAL VITAMINS W/ FOLIC ACID TABLET (FP) PO SCH (10:00)
--- NOTE | 2017-08-16 13:50 | DS ---
[facility] Detox Discharge Summary Admission Date: 08/12/17 Discharge Date: 08/16/17 - History Present History: Alcohol Dependence, Cannabis Dependence, Cocaine Dependence, Pcp Dependence Additional Comments: PATIENT GOING TO [facility] ([place]) FOR AFTERCARE. PATIENT WAS DISCHARGED FROM DETOX UNIT IN STABLE MEDICAL CONDITION. Pertinent Past History: Asthma, HIV, Bipolar Disorder, History of Borderline Personality Disorder, Weight Loss. - Physical Exam Results Vital Signs: Vital Signs Temperature 96.0 F L 08/16/17 09:21 Pulse Rate 116 H 08/16/17 09:21 Respiratory Rate 20 08/16/17 09:21 Blood Pressure 126/83 08/16/17 09:21 O2 Sat by Pulse Oximetry (%) Pertinent Admission Physical Exam Findings: WITHDRAWAL SYMPTOMS. Laboratory Tests 08/12/17 08/13/17 08/13/17 18:00 07:45 07:45 WBC 3.3 L RBC 4.33 Hgb 12.6 Hct 38.7 MCV 89.3 MCH 29.1 MCHC 32.5 RDW 14.1 Plt Count 85 L D MPV 10.0 Sodium 142 Potassium 4.1 D Chloride 107 Carbon Dioxide 26 Anion Gap 9 BUN 22 H D Creatinine 1.1 D Creat Clearance w eGFR > 60 Random Glucose 84 Calcium 8.8 Total Bilirubin 0.3 D AST 17 ALT 26 Alkaline Phosphatase 89 Total Protein 7.4 Albumin 3.4 Urine Color Ltyellow Urine Appearance Clear Urine pH 5.0 Ur Specific [place] 1.020 Urine Protein Negative Urine Glucose (UA) Negative Urine Ketones Negative Urine Blood Negative Urine Nitrite Negative Urine Bilirubin Negative Urine Urobilinogen Negative Ur Leukocyte Esterase Negative RPR Titer 08/13/17 07:45 WBC RBC Hgb Hct MCV MCH MCHC RDW Plt Count MPV Sodium Potassium Chloride Carbon Dioxide Anion Gap BUN Creatinine Creat Clearance w eGFR Random Glucose Calcium Total Bilirubin AST ALT Alkaline Phosphatase Total Protein Albumin Urine Color Urine Appearance Urine pH Ur Specific [place] Urine Protein Urine Glucose (UA) Urine Ketones Urine Blood Urine Nitrite Urine Bilirubin Urine Urobilinogen Ur Leukocyte Esterase RPR Titer Nonreactive LABS NOTED. - Treatment Hospital Course: Detox Protocol Followed, Detoxed Safely, Responded well, Discharged Condition Good, Rehab Referral Accepted Patient has Accepted a Rehab Referral to: [facility] ([place], [place]). - Medication Discharge Medications: Ambulatory Orders Darunavir/Cobicistat [Prezcobix 800 mg-150 mg Tablet] 1 each PO DAILY 05/17/17 Emtricitabine/Tenofovir [Truvada -] 1 tab PO DAILY 05/17/17 Albuterol Sulfate Inhaler - [Ventolin HFA Inhaler -] 2 puff IH Q4H PRN #1 inhaler 05/18/17 Prednisone [Deltasone -] 10 mg PO DAILY 08/12/17 Quetiapine Fumarate [Seroquel -] 600 mg PO BID 08/12/17 Leoma Carbonate [Eskalith -] 300 mg PO BID #60 capsule 08/13/17 Quetiapine Fumarate [Seroquel -] 200 mg PO BID #60 tablet 08/13/17 - Diagnosis (1) Alcohol dependence with uncomplicated withdrawal Current Visit: Yes Status: Acute (2) Asthma Current Visit: Yes Status: Chronic Qualifiers: Asthma severity: mild Asthma persistence: intermittent Asthma complication type: uncomplicated Qualified Code(s): J45.20 - Mild intermittent asthma, uncomplicated (3) Cocaine dependence, uncomplicated Current Visit: Yes Status: Chronic (4) H/O borderline personality disorder Current Visit: Yes Status: Acute (5) HIV (human immunodeficiency virus infection) Current Visit: Yes Status: Chronic (6) Nicotine dependence Current Visit: Yes Status: Chronic (7) Alcohol dependence Current Visit: No Status: Acute (8) Cannabis dependence Current Visit: No Status: Acute (9) Cocaine dependence Current Visit: No Status: Acute (10) PCP abuse Current Visit: No Status: Acute (11) Weight loss Current Visit: No Status: Acute - AMA Did Patient Leave Against Medical Advice: No
== END 2017-08-16 11:38 | disposition home or self-care (01) | DRG 774 ==
LOC: YASAS 15:39 → Y3N 16:59
PROVIDERS: ADMIT Internal Medicine; ATTEND Internal Medicine
PROC: HZ2ZZZZ Detoxification Services for Substance Abuse Treatment (ICD-10-PCS; principal; 2017-08-12)
DX: F10.230 Alcohol dependence with withdrawal, uncomplicated (principal); F14.20 Cocaine dependence, uncomplicated; F12.20 Cannabis dependence, uncomplicated; F17.210 Nicotine dependence, cigarettes, uncomplicated; F60.3 Borderline personality disorder; F31.9 Bipolar disorder, unspecified; Z21 Asymptomatic human immunodeficiency virus [HIV] infection status; J45.20 Mild intermittent asthma, uncomplicated; D72.819 Decreased white blood cell count, unspecified; D69.6 Thrombocytopenia, unspecified; E86.0 Dehydration; R79.89 Other specified abnormal findings of blood chemistry; Z87.898 Personal history of other specified conditions; Z91.013 Allergy to seafood; Z91.5 Personal history of self-harm
CPT/HCPCS: 36415; 80053; 81003; 85027; 86593; 93005; 93010

== ENCOUNTER 2018-06-30 10:08 | Inpatient (IN) | payer OTHER ==
[2018-06-30 11:20] VITALS: BMI 26.2
--- NOTE | 2018-06-30 11:32 | HP ---
CIWA Score Nausea/Vomitin Muscle Tremors: 2 Anxiety: 2 Agitation: 2 Paroxysmal Sweats: 1-Minimal Palms Moist Orientation: 0-Oriented Tacttile Disturbances: 1-Very Mild Itch/Numbness Auditory Disturbances: 1-Very Mild Visual Disturbances: 1-Very Mild Sensitivity Headache: 2-Mild CIWA-Ar Total Score: 14 - Admission Criteria OASAS Guidelines: Admission for Medically Managed Detox: Requires at least one of the followin. CIWA greater than 12 2. Seizures within the past 24 hours 3. Delirium tremens within the past 24 hours 4. Hallucinations within the past 24 hours 5. Acute intervention needed for co occurring medical disorder 6. Acute intervention needed for co occurring psychiatric disorder 7. Severe withdrawal that cannot be handled at a lower level of care (continued vomiting, continued diarrhea, abnormal vital signs) requiring intravenous medication and/or fluids 8. Patient presents the following: CIWA greater than 12, Acute intervention needed for co-occurring med or psych disorder Admission Criteria Met: Admission criteria met Admission ROS S - HPI Chief Complaint: i need help to stop drinking alcohol,cocaine and marijuana Allergies/Adverse Reactions: Allergies Allergy/AdvReac Type Severity Reaction Status Date / Time shellfish derived Allergy Severe Difficulty Verified 06/30/18 13:10 [Shellfish Derived] Breathing Sulfa (Sulfonamide Allergy Verified 06/30/18 13:10 Antibiotics) silk Allergy Intermediate Swelling Uncoded 06/30/18 13:10 History of Present Illness: this 43 years old male with alcohol,cocaine and marijuana dependence,seeking detox,withdrawal symptom, last detox 08/12/17 to 08/16/17 detox,rehab 08/16/18 to 08/17/18 multiple admissions in detox but keep relapsing bipolar disorder,schzizophrenia and personality disorder insomnia nicotine dependence longest period of sobriety 6 months Exam Limitations: No Limitations - Ebola screening Have you traveled outside of the country in the last 21 days: No Have you been sick,other than usual withdrawal symptoms: No - Review of Systems Constitutional: Malaise, Night Sweats, Changes in sleep, Weakness EENT: reports: Nose Congestion Respiratory: reports: No Symptoms reported (asthma), Other Cardiac: reports: Palpitations GI: reports: Nausea, Poor Appetite, Abdominal cramping : reports: No Symptoms Reported Musculoskeletal: reports: Back Pain, Muscle Pain Integumentary: reports: Dryness Neuro: reports: Headache, Tremors Endocrine: reports: No Symptoms Reported Hematology: reports: No Symptoms Reported Psychiatric: reports: No Sypmtoms Reported, Judgement Intact, Mood/Affect Appropiate, Orientated x3 (bipolar disorder,schizophrenia,borderlined personality,insomnia) Patient History - Patient Medical History Hx Anemia: No Hx Asthma: Yes (on albuterol inhaler) Hx Chronic Obstructive Pulmonary Disease (COPD): No Hx Cancer: No Hx Cardiac Disorders: No Hx Congestive Heart Failure: No Hx Hypertension: No Hx Hypercholesterolemia: No Hx Pacemaker: No HX Cerebrovascular Accident: No Hx Seizures: No Hx Dementia: No Hx Diabetes: No Hx Gastrointestinal Disorders: No Hx Liver Disease: No Hx Genitourinary Disorders: No Hx Sexually Transmitted Disorders: No Hx Renal Disease (ESRD): No Hx Thyroid Disease: No Hx Human Immunodeficiency Virus (HIV): Yes (since 1996) Hx Hepatitis C: No Hx Depression: Yes Hx Suicide Attempt: Yes (overdose at age 20 years) Hx Bipolar Disorder: Yes Hx Schizophrenia: Yes Other Medical History: no suicidal,no homicidal - Patient Surgical History Past Surgical History: No Hx Neurologic Surgery: No Hx Cataract Extraction: No Hx Cardiac Surgery: No Hx Lung Surgery: No Hx Breast Surgery: No Hx Breast Biopsy: No Hx Abdominal Surgery: No Hx Appendectomy: No Hx Cholecystectomy: No Hx Genitourinary Surgery: No Hx Section: No Hx Orthopedic Surgery: No Anesthesia Reaction: No - PPD History Previous Implant?: Yes Documented Results: Negative w/proof Implanted On Prior [facility] Admission?: Yes Date: 08/14/17 Results: 0 mm PPD to be Administered?: No - Smoking Cessation Smoking history: Current every day smoker Have you smoked in the past 12 months: Yes Aproximately how many cigarettes per day: 5 Hx Chewing Tobacco Use: No Initiated information on smoking cessation: Yes 'Breaking Loose' booklet given: 06/30/18 - Substance & Tx. History Hx Alcohol Use: Yes Hx Substance Use: Yes Substance Use Type: Alcohol, Cocaine, Marijuana Hx Substance Use Treatment: Yes ([facility] 08/12/17 to 08/16/17 detox,rehab 08/16/17 to 08/17/17 not completed) - Substances Abused Alcohol Route: Oral Frequency: Daily Amount used: 1pint of vodka/6 packs of 12 ozs of beer Age of first use: 19 Date of Last Use: 06/30/18 Cocaine Route: Smoking Frequency: Daily Amount used: 40$ Age of first use: 21 Date of Last Use: 06/29/18 Marijuana/Hashish Route: Smoking Frequency: Daily Amount used: 20$ Age of first use: 16 Date of Last Use: 06/29/18 Family Disease History - Family Disease History Family Disease History: Diabetes: Mother (HTN), Brother (HTN), CA: Grandparent ( Prostate), Other: Mother, Brother Admission Physical Exam [facility] - Vital Signs Vital Signs: Vital Signs - 24 hr 06/30/18 11:19 Temperature 97.0 F L Pulse Rate 115 H Respiratory 20 Rate Blood Pressure 126/79 - Physical General Appearance: Yes: Moderate Distress, Tremorous, Irritable, Sweating, Anxious HEENTM: Yes: Normal ENT Inspection, BRANNON, Pharynx Normal Respiratory: Yes: Lungs Clear, Normal Breath Sounds, No Respiratory Distress Neck: Yes: Within Normal Limits, Supple, Trachea in good position Breast: Yes: Within Normal Limits Cardiology: Yes: Tachycardia Abdominal: Yes: Within Normal Limits, Normal Bowel Sounds, Non Tender, Flat, Soft Genitourinary: Yes: Within Normal Limits Back: Yes: Muscle Spasm Musculoskeletal: Yes: full range of Motion, Back pain, Muscle Pain Extremities: Yes: Tremors Neurological: Yes: Within Normal Limits, pump room operator II-XII NML intact, Fully Oriented, Alert, Motor Strength 5/5 Integumentary: Yes: Dry Lymphatic: Yes: Within Normal Limits - Diagnostic (1) Alcohol dependence with uncomplicated withdrawal Current Visit: No Status: Acute (2) Bipolar I disorder Current Visit: No Status: Acute (3) Cannabis dependence Current Visit: No Status: Acute (4) Cocaine dependence Current Visit: No Status: Acute (5) H/O borderline personality disorder Current Visit: No Status: Acute (6) Weight loss Current Visit: No Status: Acute (7) Asthma Current Visit: No Status: Chronic Qualifiers: Asthma severity: mild Asthma persistence: intermittent Asthma complication type: uncomplicated Qualified Code(s): J45.20 - Mild intermittent asthma, uncomplicated (8) Bipolar disorder Current Visit: No Status: Chronic (9) Cocaine dependence, uncomplicated Current Visit: No Status: Chronic (10) Nicotine dependence Current Visit: No Status: Chronic (11) Schizophrenia Current Visit: Yes Status: Acute (12) Borderline personality disorder Current Visit: Yes Status: Acute (13) HIV (human immunodeficiency virus infection) Current Visit: No Status: Chronic Cleared for Admission [facility] - Detox or Rehab [facility] Level of Care: Medically Managed Detox Regimen/Protocol: Librium [facility] Breath Alcohol Content Breath Alcohol Content: 0 Urine Drug Screen - Results Drug Screen Negative: No Urine Drug Screen Results: THC-Marijuana, ANJELICA-Cocaine
[2018-06-30] MEDS ORDERED: ALBUTEROL SO4 8 GM HFA INHALER IH PRN ×2 (13:27→13:58)
[2018-06-30] MEDS ORDERED: ACETAMINOPHEN 325 MG TABLET (FP) PO PRN (13:55)
[2018-06-30] MEDS ORDERED: guaiFENesin/D-METHORPHAN HB 10 ML UNIT-DOSE CUPS PO PRN (13:55)
[2018-06-30] MEDS ORDERED: chlordiazePOXIDE HCL 25 MG CAPSULE PO PRN (13:55)
[2018-06-30] MEDS ORDERED: LOPERAMIDE HCL 2 MG CAPSULE PO PRN (13:55)
[2018-06-30] MEDS ORDERED: MENTHOL/PHENOL 1 EACH UD MM PRN (13:55)
[2018-06-30] MEDS ORDERED: MAGNESIUM CITRATE 300 ML BOTTLE PO PRN (13:55)
[2018-06-30] MEDS ORDERED: IBUPROFEN 400 MG TABLET (FP) PO PRN (13:55)
[2018-06-30] MEDS ORDERED: P-EPHED 60MG/TRIPROLIDI 2.5MG TABLET PO PRN (13:55)
[2018-06-30] MEDS ORDERED: MAGNESIUM HYDROX 2400MG/30ML ORAL SUSPENSION 30 ML CUP PO PRN (13:55)
[2018-06-30] MEDS ORDERED: hydrOXYzine PAMOATE 50 MG CAPSULE (FP) PO PRN (13:55)
[2018-06-30] MEDS ORDERED: MAG HYDROX/AL HYDROX/SIMETH 30 ML UNIT-DOSE CUP PO PRN (13:55)
[2018-06-30] MEDS: NICOTINE 21 MG/24 HOURS TOPICAL PATCH TD SCH (14:53)
[2018-06-30] MEDS: chlordiazePOXIDE HCL 25 MG CAPSULE PO SCH ×2 (17:26→23:09)
[2018-06-30 19:04] LABS: URINE APPEARANCE TURBID; URINE BILIRUBIN NEGATIVE (<2.0 mg/dL); URINE COLOR RED; URINE GLUCOSE (UA) NEGATIVE (NEGATIVE); URINE KETONE NEGATIVE (NEGATIVE); URINE LEUK ESTERASE 1+ (NEGATIVE); URINE NITRITE POSITIVE (NEGATIVE); URINE PROTEIN 2+ (NEGATIVE); URINE UROBILINOGEN NEGATIVE mg/dL (0.2-1.0)
[2018-06-30 19:10] LABS: URINE BACTERIA RARE /hpf (NONE SEEN); URINE MUCUS RARE
[2018-06-30] MEDS ORDERED: MELATONIN 5 MG TABLETS PO PRN (22:00)
[2018-06-30] MEDS: THIAMINE HCL 100 MG TABLET (FP) PO SCH (23:08)
[2018-07-01] MEDS: chlordiazePOXIDE HCL 25 MG CAPSULE PO SCH ×4 (06:06→22:29)
[2018-07-01] MEDS: PRENATAL VITAMINS W/ FOLIC ACID TABLET (FP) PO SCH (10:40)
[2018-07-01] MEDS: NICOTINE 21 MG/24 HOURS TOPICAL PATCH TD SCH (10:40)
--- NOTE | 2018-07-01 10:51 | EKG ---
Test Reason : Blood Pressure : / mmHG Vent. Rate : 100 BPM Atrial Rate : 100 BPM P-R Int : 178 ms QRS Dur : 082 ms QT Int : 344 ms P-R-T Axes : 061 067 044 degrees QTc Int : 443 ms NORMAL SINUS RHYTHM NORMAL ECG WHEN COMPARED WITH ECG OF 12-AUG-2017 19:49, NO SIGNIFICANT CHANGE WAS FOUND Confirmed by JAY VELA MD ([id number]) on 07/01/2018 10:51:26 AM Referred By: Angy Roy Confirmed By:JAY VELA MD
--- NOTE | 2018-07-01 17:39 | PN ---
S CIWA - CIWA Score Nausea/Vomitin-Mild Nausea/No Vomiting Muscle Tremors: 3 Anxiety: 3 Agitation: 2 Paroxysmal Sweats: 3 Orientation: 0-Oriented Tacttile Disturbances: 0-None Auditory Disturbances: 0-None Visual Disturbances: 0-None Headache: 0-None Present CIWA-Ar Total Score: 12 [facility] Progress Note (SOAP) Subjective: shakes sweats tremors Objective: 07/01/18 17:39 A & O x 3 In day room no acute distress Assessment: 07/01/18 17:39 withdrawal sx Plan: continue detox
--- NOTE | 2018-07-01 18:56 | CONSULT ---
[facility] Psychiatric Consult - Data Date of interview: 07/01/18 Admission source: [facility] Identifying data: Readmission to [facility] for this 43 y/o male seeking detoxification treatment, on , for alcohol, cocaine and cannabis dependence. Patient is single, no children, domiciled, unemployed and supported on SSI benefits. Substance Abuse History: Confirmed by patient in this interview. See details in current [facility] report : Smoking history: Current every day smoker. Have you smoked in the past 12 months: Yes. Aproximately how many cigarettes per day: 5. Hx Chewing Tobacco Use: No. Initiated information on smoking cessation: Yes. 'Breaking Loose' booklet given: 06/30/18. - Substance & Tx. History. Hx Alcohol Use: Yes. Hx Substance Use: Yes. Substance Use Type: Alcohol, Cocaine , Marijuana. Hx Substance Use Treatment: Yes ([facility] 08/12/17 to 08/16/17 detox, rehab 08/16/17 to 08/17/17 not completed). - Substances Abused. Alcohol. Route: Oral. Frequency: Daily. Amount used: 1pint of vodka/6 packs of 12 ozs of beer. Age of first use: 19. Date of Last Use: 06/30/18. Cocaine. Route : Smoking. Frequency: Daily. Amount used: 40$. Age of first use: 21. Date of Last Use: 06/29/18. Marijuana/Hashish. Route: Smoking. Frequency: Daily. Amount used: 20$. Age of first use: 16. Date of Last Use: 06/29/18 Medical History: HIV infection since 1996 (not on HAART medications) and bronchial asthma. Psychiatric History: Early onset of psychiatric disturbances (adolescence). Patient was first hospitalized, at age 15, to an unnamed institution and diagnosed with ADHD. Diagnosis was revised later to Bipolar Disorder and Borderline Personality Disorder. Mr Remigio is also known to [facility] and [facility]. Adherence to psychiatric OPD care remains questionable. Patient declares that he gets his medications refills from local [facility] settings (seroquel 300 mg/hs + haldol bid ??). Vague and indifferent historian. History of one suicide attempt, at age 21, via overdose with medications. Physical/Sexual Abuse/Trauma History: Patient denies. Additional Comment: Urine Drug Screen Results: THC-Marijuana, ANJELICA-Cocaine. Noted. Mental Status Exam - Mental Status Exam Alert and Oriented to: Time, Place, Person Cognitive Function: Good Patient Appearance: Unkempt (tattoos on both forearms), Disheveled Mood: Nervous, Withdrawn Affect: Mood Congruent Patient Behavior: Fatigued, Cooperative Speech Pattern: Clear, Appropriate Voice Loudness: Normal Thought Process: Goal Oriented Thought Disorder: Not Present Hallucinations: Denies Suicidal Ideation: Denies Homicidal Ideation: Denies Insight/Judgement: Poor Sleep: Poorly, Difficulty falling asleep Appetite: Good Muscle strength/Tone: Normal Gait/Station: Normal Psychiatric Findings - Problem List ([place] 1, 2,3) (1) Alcohol dependence with uncomplicated withdrawal Current Visit: Yes Status: Acute (2) Cannabis dependence Current Visit: Yes Status: Acute (3) Nicotine dependence Current Visit: Yes Status: Acute (4) Cocaine dependence Current Visit: Yes Status: Acute (5) Substance induced mood disorder Current Visit: Yes Status: Acute (6) Schizoaffective disorder Current Visit: No Status: Suspected Comment: As per self-report. (7) Insomnia Current Visit: Yes Status: Acute (8) Non-compliant patient Current Visit: Yes Status: Chronic - Initial Treatment Plan Initial Treatment Plan: Psychoeducation. Sleep hygiene. Detoxification in progress. Motivational rounds. Medication : seroquel 100 mg po hs. Titration will follow if clinically indicated (patient is an unreliable historian and chronically non-adherent to medications). Side effects/benefits discussed with the patient. Verbal consent given to director underwriter sales. Observation.
[2018-07-01] MEDS: THIAMINE HCL 100 MG TABLET (FP) PO SCH (22:29)
[2018-07-01] MEDS: QUEtiapine FUMARATE 100 MG TABLET (FP) PO SCH (22:29)
[2018-07-02] MEDS: chlordiazePOXIDE HCL 25 MG CAPSULE PO SCH ×2 (06:00→10:47)
[2018-07-02] MEDS: PRENATAL VITAMINS W/ FOLIC ACID TABLET (FP) PO SCH (10:46)
[2018-07-02] MEDS: NICOTINE 21 MG/24 HOURS TOPICAL PATCH TD SCH (10:47)
--- NOTE | 2018-07-02 14:15 | PN ---
[facility] CIWA - CIWA Score Nausea/Vomitin-Mild Nausea/No Vomiting Muscle Tremors: 3 Anxiety: 3 Agitation: 2 Paroxysmal Sweats: 3 Orientation: 0-Oriented Tacttile Disturbances: 0-None Auditory Disturbances: 0-None Visual Disturbances: 0-None Headache: 0-None Present CIWA-Ar Total Score: 12 [facility] Progress Note (SOAP) Subjective: Tremor, sweating, interrupted sleep Objective: 07/02/18 14:11 Last Vital Signs Temp Pulse Resp BP Pulse Ox 97.2 F L 119 H 20 112/78 07/02/18 06:39 07/02/18 10:30 07/02/18 10:30 07/02/18 10:30 Laboratory Tests 06/30/18 15:48 Urine Color Red Urine Appearance Turbid Urine pH 7.0 D Ur Specific [place] 1.017 Urine Protein 2+ H Urine Glucose (UA) Negative Urine Ketones Negative Urine Blood Negative Urine Nitrite Positive Urine Bilirubin Negative Urine Urobilinogen Negative Ur Leukocyte Esterase 1+ H Urine WBC (Auto) 31 Urine RBC (Auto) 2 Urine Bacteria Rare Urine Mucus Rare UA noted: nitrite positive Assessment: 07/02/18 14:12 Withdrawal symptoms Noted with acute UTI Plan: Continue detox Admission labs reordered in AM (not done) Acute UTI: encouraged PO water intake, send urine culture, start levaquin 500mg PO daily x 10 days
[2018-07-02] MEDS: chlordiazePOXIDE 5 MG CAPSULE PO SCH ×2 (17:27→23:00)
[2018-07-02] MEDS: QUEtiapine FUMARATE 100 MG TABLET (FP) PO SCH (23:00)
[2018-07-02] MEDS: THIAMINE HCL 100 MG TABLET (FP) PO SCH (23:00)
[2018-07-03] MEDS: chlordiazePOXIDE 5 MG CAPSULE PO SCH ×2 (06:03→12:33)
[2018-07-03 10:06] LABS: BASO % 0.4 % (0-2.0); EOS % 1.2 % (0-4.5); HEMATOCRIT 37.3 % (35.4-49); HEMOGLOBIN 12.5 GM/dL (11.7-16.9); LYMPH % 18.7 % (8-40); MCH 30.2 pg (25.7-33.7); MCHC 33.4 g/dl (32.0-35.9); MEAN CELL VOLUME 90.4 fl (80-96); MEAN PLT VOLUME 9.3 fl (7.5-11.1); NEUT % 56.7 % (42.8-82.8); PLATELET COUNT 105 K/MM3 (134-434); RBC 4.12 M/mm3 (4.00-5.60); RDW 16.1 % (11.9-15.9); WHITE BLOOD COUNT 4.4 K/mm3 (4.0-10.0)
[2018-07-03 10:20] LABS: URINE APPEARANCE TURBID; URINE BILIRUBIN NEGATIVE (<2.0 mg/dL); URINE GLUCOSE (UA) NEGATIVE (NEGATIVE); URINE KETONE NEGATIVE (NEGATIVE); URINE LEUK ESTERASE TRACE (NEGATIVE); URINE NITRITE POSITIVE (NEGATIVE); URINE PROTEIN 1+ (NEGATIVE); URINE UROBILINOGEN NEGATIVE mg/dL (0.2-1.0)
[2018-07-03 10:30] LABS: URINE COLOR YELLOW
[2018-07-03 10:36] LABS: TRIPLE PHOSPHATE CRYSTAL RARE /hpf (NONE SEEN); URINE MUCUS FEW
[2018-07-03 10:42] LABS: ALBUMIN 3.8 g/dl (3.4-5.0); ALK PHOS 119 U/L (45-117); ANION GAP 10 MMOL/L (8-16); BILIRUBIN,TOTAL 0.5 mg/dL (0.2-1); BLOOD UREA NITROGEN 16 mg/dL (7-18); CALCIUM 8.1 mg/dL (8.5-10.1); CHLORIDE 103 mmol/L (98-107); CO2 23 mmol/L (21-32); GLUCOSE,RANDOM 84 mg/dL (74-106); POTASSIUM 3.9 mmol/L (3.5-5.1); SGOT/AST 26 U/L (15-37); SGPT/ALT 39 U/L (13-61); SODIUM 136 mmol/L (136-145); TOT PROT 8.6 g/dl (6.4-8.2)
[2018-07-03] MEDS: NICOTINE 21 MG/24 HOURS TOPICAL PATCH TD SCH (10:54)
[2018-07-03] MEDS: PRENATAL VITAMINS W/ FOLIC ACID TABLET (FP) PO SCH (10:54)
--- NOTE | 2018-07-03 12:54 | PN ---
S Progress Note (SOAP) Subjective: Tremor, sweating, interrupted sleep Objective: 07/03/18 12:49 Last Vital Signs Temp Pulse Resp BP Pulse Ox 97 F L 120 H 20 117/80 07/03/18 09:06 07/03/18 09:06 07/03/18 09:06 07/03/18 09:06 tachycardia noted Laboratory Tests 06/30/18 07/03/18 07/03/18 15:48 07:17 07:17 WBC 4.4 RBC 4.12 Hgb 12.5 Hct 37.3 MCV 90.4 MCH 30.2 MCHC 33.4 RDW 16.1 H Plt Count 105 L D MPV 9.3 Absolute Neuts (auto) 2.5 Neutrophils % 56.7 Lymphocytes % 18.7 Monocytes % 23.0 H Eosinophils % 1.2 Basophils % 0.4 Nucleated RBC % 0 Sodium 136 Potassium 3.9 Chloride 103 Carbon Dioxide 23 Anion Gap 10 BUN 16 Creatinine 1.0 Creat Clearance w eGFR > 60 Random Glucose 84 Calcium 8.1 L Total Bilirubin 0.5 AST 26 ALT 39 Alkaline Phosphatase 119 H Total Protein 8.6 H Albumin 3.8 Urine Color Red Urine Appearance Turbid Urine pH 7.0 D Ur Specific [place] 1.017 Urine Protein 2+ H Urine Glucose (UA) Negative Urine Ketones Negative Urine Blood Negative Urine Nitrite Positive Urine Bilirubin Negative Urine Urobilinogen Negative Ur Leukocyte Esterase 1+ H Urine WBC (Auto) 31 Urine RBC (Auto) 2 Triple Phos Crystals Urine Bacteria Rare Urine Mucus Rare 07/03/18 08:00 WBC RBC Hgb Hct MCV MCH MCHC RDW Plt Count MPV Absolute Neuts (auto) Neutrophils % Lymphocytes % Monocytes % Eosinophils % Basophils % Nucleated RBC % Sodium Potassium Chloride Carbon Dioxide Anion Gap BUN Creatinine Creat Clearance w eGFR Random Glucose Calcium Total Bilirubin AST ALT Alkaline Phosphatase Total Protein Albumin Urine Color Yellow Urine Appearance Turbid Urine pH 8.0 Ur Specific [place] 1.017 Urine Protein 1+ H Urine Glucose (UA) Negative Urine Ketones Negative Urine Blood Negative Urine Nitrite Positive Urine Bilirubin Negative Urine Urobilinogen Negative Ur Leukocyte Esterase Trace Urine WBC (Auto) None Urine RBC (Auto) 1 Triple Phos Crystals Rare Urine Bacteria Urine Mucus Few Labs reviewed: UTI noted Assessment: 07/03/18 12:50 Withdrawal sxs Noted with tachycardia and acute UTI Plan: Continue detox Tachycardia: most likely due to withdrawal, encouraged PO water intake, continue to monitor Acute UTI: follow up on repeated urine culture (ordered but was not done), continue levaquin, follow up with your PCP post discharge
[2018-07-03 13:46] LABS: ANISOCYTOSIS 1+; MACROCYTOSIS 1+; OVALOCYTE 1+; PLATELET ESTIMATE DECREASED
[2018-07-03 15:40] LABS: URINE BACTERIA 4+ /hpf (NONE SEEN)
[2018-07-03] MEDS: chlordiazePOXIDE HCL 10 MG CAPSULE PO SCH ×2 (17:25→22:05)
[2018-07-03] MEDS: THIAMINE HCL 100 MG TABLET (FP) PO SCH (22:05)
[2018-07-03] MEDS: QUEtiapine FUMARATE 100 MG TABLET (FP) PO SCH (22:05)
[2018-07-04] MEDS: chlordiazePOXIDE HCL 10 MG CAPSULE PO SCH ×2 (06:00→11:31)
[2018-07-04 09:15] VITALS: BP 115/69; PULSE 120; TEMP 96.9
--- NOTE | 2018-07-04 10:45 | DS ---
[facility] Detox Discharge Summary Admission Date: 06/30/18 Discharge Date: 07/04/18 - History Present History: Alcohol Dependence, Cannabis Dependence, Cocaine Dependence Additional Comments: Patient is scheduled for discharge today. As per patient, his counselor told him that he will be going to [facility] and has to do intake today. Patient accepted rehab bed here at [facility] as he's not sure if [facility] would have a bed for him and he was told initially that there was no beds available here. Patient encouraged to complete rehab and to follow up with his PCP after rehab completion. Pertinent Past History: Alcohol dependence Cannabis dependence Schizophrenia Asthma Bipolar disorder Cocaine dependence HIV - Physical Exam Results Vital Signs: Vital Signs Temperature 96.9 F L 07/04/18 09:14 Pulse Rate 120 H 07/04/18 09:14 Respiratory Rate 18 07/04/18 09:14 Blood Pressure 115/69 07/04/18 09:14 O2 Sat by Pulse Oximetry (%) Pertinent Admission Physical Exam Findings: Withdrawal symptoms Laboratory Tests 06/30/18 07/03/18 07/03/18 15:48 07:17 07:17 WBC 4.4 RBC 4.12 Hgb 12.5 Hct 37.3 MCV 90.4 MCH 30.2 MCHC 33.4 RDW 16.1 H Plt Count 105 L D MPV 9.3 Absolute Neuts (auto) 2.5 Neutrophils % 56.7 Neutrophils % (Manual) 59.0 Band Neutrophils % 1.0 Lymphocytes % 18.7 Lymphocytes % (Manual) 17.0 Monocytes % 23.0 H Monocytes % (Manual) 17 H Eosinophils % 1.2 Eosinophils % (Manual) 2.0 Basophils % 0.4 Basophils % (Manual) 1.0 Myelocytes % (Man) 0 Promyelocytes % (Man) 0 Blast Cells % (Manual) 0 Nucleated RBC % 0 Metamyelocytes 0 Hypochromia 0 Platelet Estimate Decreased Polychromasia 0 Poikilocytosis 0 Anisocytosis 1+ Microcytosis 1+ Macrocytosis 1+ Spherocytes 1+ Ovalocytes 1+ Schistocytes 1+ Sodium 136 Potassium 3.9 Chloride 103 Carbon Dioxide 23 Anion Gap 10 BUN 16 Creatinine 1.0 Creat Clearance w eGFR > 60 Random Glucose 84 Calcium 8.1 L Total Bilirubin 0.5 AST 26 ALT 39 Alkaline Phosphatase 119 H Total Protein 8.6 H Albumin 3.8 Urine Color Red Urine Appearance Turbid Urine pH 7.0 D Ur Specific [place] 1.017 Urine Protein 2+ H Urine Glucose (UA) Negative Urine Ketones Negative Urine Blood Negative Urine Nitrite Positive Urine Bilirubin Negative Urine Urobilinogen Negative Ur Leukocyte Esterase 1+ H Urine WBC (Auto) 31 Urine RBC (Auto) 2 Triple Phos Crystals Urine Bacteria Rare Urine Mucus Rare RPR Titer 07/03/18 07/03/18 07:17 08:00 WBC RBC Hgb Hct MCV MCH MCHC RDW Plt Count MPV Absolute Neuts (auto) Neutrophils % Neutrophils % (Manual) Band Neutrophils % Lymphocytes % Lymphocytes % (Manual) Monocytes % Monocytes % (Manual) Eosinophils % Eosinophils % (Manual) Basophils % Basophils % (Manual) Myelocytes % (Man) Promyelocytes % (Man) Blast Cells % (Manual) Nucleated RBC % Metamyelocytes Hypochromia Platelet Estimate Polychromasia Poikilocytosis Anisocytosis Microcytosis Macrocytosis Spherocytes Ovalocytes Schistocytes Sodium Potassium Chloride Carbon Dioxide Anion Gap BUN Creatinine Creat Clearance w eGFR Random Glucose Calcium Total Bilirubin AST ALT Alkaline Phosphatase Total Protein Albumin Urine Color Yellow Urine Appearance Turbid Urine pH 8.0 Ur Specific [place] 1.017 Urine Protein 1+ H Urine Glucose (UA) Negative Urine Ketones Negative Urine Blood Negative Urine Nitrite Positive Urine Bilirubin Negative Urine Urobilinogen Negative Ur Leukocyte Esterase Trace Urine WBC (Auto) None Urine RBC (Auto) 1 Triple Phos Crystals Rare Urine Bacteria 4+ Urine Mucus Few RPR Titer Nonreactive Labs reviewed: UTI noted (treated with levaquin), encouraged to drink more water for hydration and to follow up with his PCP for further evaluation - Treatment Hospital Course: Detox Protocol Followed, Detoxed Safely, Responded well, Discharged Condition Good, Rehab Referral Accepted - Medication Discharge Medications: Ambulatory Orders Albuterol Sulfate Inhaler - [Ventolin HFA Inhaler -] 2 puff IH Q4H PRN #1 inhaler 05/18/17 Quetiapine Fumarate [Seroquel -] 600 mg PO BID 08/12/17 - Diagnosis (1) UTI (urinary tract infection) Current Visit: Yes Status: Acute (2) Alcohol dependence with uncomplicated withdrawal Current Visit: Yes Status: Acute (3) Cannabis dependence Current Visit: Yes Status: Chronic (4) Schizophrenia Current Visit: Yes Status: Chronic (5) Asthma Current Visit: Yes Status: Chronic Qualifiers: Asthma severity: mild Asthma persistence: intermittent Asthma complication type: uncomplicated Qualified Code(s): J45.20 - Mild intermittent asthma, uncomplicated (6) Bipolar disorder Current Visit: Yes Status: Chronic (7) Cocaine dependence, uncomplicated Current Visit: Yes Status: Chronic (8) HIV (human immunodeficiency virus infection) Current Visit: Yes Status: Chronic - AMA Did Patient Leave Against Medical Advice: No (Patient accepted admission to [facility])
[2018-07-04] MEDS: PRENATAL VITAMINS W/ FOLIC ACID TABLET (FP) PO SCH (11:31)
[2018-07-04] MEDS: NICOTINE 21 MG/24 HOURS TOPICAL PATCH TD SCH (11:31)
== END 2018-07-04 14:36 | disposition home or self-care (01) | DRG 774 ==
LOC: YASAS 10:08 → Y3N 13:18
PROC: HZ2ZZZZ Detoxification Services for Substance Abuse Treatment (ICD-10-PCS; principal; 2018-06-30)
DX: F10.230 Alcohol dependence with withdrawal, uncomplicated (principal); F14.10 Cocaine abuse, uncomplicated; F12.20 Cannabis dependence, uncomplicated; F17.210 Nicotine dependence, cigarettes, uncomplicated; F19.24 Other psychoactive substance dependence with psychoactive substance-induced mood disorder; F60.3 Borderline personality disorder; F31.9 Bipolar disorder, unspecified; F20.9 Schizophrenia, unspecified; Z21 Asymptomatic human immunodeficiency virus [HIV] infection status; G47.00 Insomnia, unspecified; J45.20 Mild intermittent asthma, uncomplicated; N39.0 Urinary tract infection, site not specified; R79.89 Other specified abnormal findings of blood chemistry; Z88.2 Allergy status to sulfonamides; Z91.013 Allergy to seafood; Z91.19 Patient's noncompliance with other medical treatment and regimen
CPT/HCPCS: 36415; 80053; 81003; 81015; 85025; 86593; 87086; 93005; 93010

== ENCOUNTER 2018-07-04 20:28 | Inpatient (IN) | payer OTHER ==
[2018-07-04 21:35] VITALS: BMI 29.3
[2018-07-04] MEDS ORDERED: MELATONIN 5 MG TABLETS PO PRN (22:00)
--- NOTE | 2018-07-04 22:58 | HP ---
CIWA Score - Admission Criteria OASAS Guidelines: Admission for Medically Managed Detox: Requires at least one of the followin. CIWA greater than 12 2. Seizures within the past 24 hours 3. Delirium tremens within the past 24 hours 4. Hallucinations within the past 24 hours 5. Acute intervention needed for co occurring medical disorder 6. Acute intervention needed for co occurring psychiatric disorder 7. Severe withdrawal that cannot be handled at a lower level of care (continued vomiting, continued diarrhea, abnormal vital signs) requiring intravenous medication and/or fluids 8. Admission ROS S - [facility] Chief Complaint: Completed alcohol detox 07/04/18 @ [facility] and here for rehab. Allergies/Adverse Reactions: Allergies Allergy/AdvReac Type Severity Reaction Status Date / Time shellfish derived Allergy Severe Difficulty Verified 07/04/18 21:44 [Shellfish Derived] Breathing Sulfa (Sulfonamide Allergy Verified 07/04/18 21:44 Antibiotics) silk Allergy Intermediate Swelling Uncoded 07/04/18 21:44 History of Present Illness: Hx alcohol use since age 25. Just completed rehab but transport to [facility] rehab did not arrive and opted to complete rehab at [facility]. Nicotine use since age 19. Cocaine use since age 21. Marijuana use since age 16. Hx asthma, eczema, dry skin, HIV(+) C/o mental health problems but not seieing a psychiatrist. order insomnia Longest period of sobriety 6 months. Exam Limitations: No Limitations - Ebola screening Have you traveled outside of the country in the last 21 days: No Have you been sick,other than usual withdrawal symptoms: No Do you have a fever: No - Review of Systems Constitutional: Changes in sleep (Difficulty falling asleep) EENT: reports: Dental Problems (Missing teeth. Chews and swallows okay.) Respiratory: reports: No Symptoms reported Cardiac: reports: Irregular Heart Rate (States told has an arrhythmia - unsure of type) GI: reports: No Symptoms Reported : reports: No Symptoms Reported Musculoskeletal: reports: No Symptoms Reported Integumentary: reports: No Symptoms Reported, Rash (Eczema on face) Neuro: reports: Tremors Endocrine: reports: No Symptoms Reported Hematology: reports: No Symptoms Reported Psychiatric: reports: Judgement Intact, Mood/Affect Appropiate, Orientated x3, Anxious, Depressed (Occ. Denies thoughts of harming self or others.) Patient History - Patient Medical History Hx Anemia: No Hx Asthma: Yes (on albuterol inhaler) Hx Chronic Obstructive Pulmonary Disease (COPD): No Hx Cancer: No Hx Cardiac Disorders: No Hx Congestive Heart Failure: No Hx Hypertension: No Hx Hypercholesterolemia: No Hx Pacemaker: No HX Cerebrovascular Accident: No Hx Seizures: No Hx Dementia: No Hx Diabetes: No Hx Gastrointestinal Disorders: No Hx Liver Disease: No Hx Genitourinary Disorders: No Hx Sexually Transmitted Disorders: No Hx Renal Disease (ESRD): No Hx Thyroid Disease: No Hx Human Immunodeficiency Virus (HIV): Yes (since 1996) Hx Hepatitis C: No Hx Depression: Yes Hx Suicide Attempt: Yes (overdose at age 20 years) Hx Bipolar Disorder: Yes Hx Schizophrenia: Yes - Patient Surgical History Past Surgical History: No Hx Neurologic Surgery: No Hx Cataract Extraction: No Hx Cardiac Surgery: No Hx Lung Surgery: No Hx Breast Surgery: No Hx Breast Biopsy: No Hx Abdominal Surgery: No Hx Appendectomy: No Hx Cholecystectomy: No Hx Genitourinary Surgery: No Hx Section: No Hx Orthopedic Surgery: No Anesthesia Reaction: No - PPD History Previous Implant?: Yes Documented Results: Negative w/proof Implanted On Prior R Admission?: Yes Date: 08/14/17 Results: 0 mm PPD to be Administered?: No - Smoking Cessation Smoking history: Current every day smoker Have you smoked in the past 12 months: Yes Aproximately how many cigarettes per day: 5 Hx Chewing Tobacco Use: No Initiated information on smoking cessation: Yes 'Breaking Loose' booklet given: 07/04/18 - Substance & Tx. History Hx Alcohol Use: Yes Hx Substance Use: Yes Substance Use Type: Alcohol, Marijuana Hx Substance Use Treatment: Yes (detox, rehab) - Substances Abused Alcohol Route: Oral Frequency: 3-6 times per week Amount used: 1 6 PACK OF BEER (12 OUNCES) Age of first use: 23 Date of Last Use: 06/29/18 Marijuana/Hashish Route: Smoking Frequency: 3-6 times per week Amount used: &20 Age of first use: 16 Date of Last Use: 06/29/18 Cocaine Route: Smoking Frequency: Daily Amount used: $40 Age of first use: 21 Date of Last Use: 06/29/18 Family Disease History - Family Disease History Family Disease History: Diabetes: Mother (HTN), Brother (HTN), CA: Grandparent ( Prostate), Other: Mother, Brother Admission Physical Exam [facility] - Vital Signs Vital Signs: Vital Signs - 24 hr 07/04/18 21:31 Temperature 98.1 F Pulse Rate 76 Respiratory 16 Rate Blood Pressure 122/80 - Physical General Appearance: Yes: No Apparent Distress, Tremorous, Anxious HEENTM: Yes: EOMI (Jerking movement of both eyes on (L) and (R) lateral gaze), Hearing grossly Normal, Normocephalic, BRANNON, Rhinorrhea (Clear) Respiratory: Yes: Chest Non-Tender, Lungs Clear, Normal Breath Sounds, No Respiratory Distress Neck: Yes: No masses,lesions,Nodules, Supple Breast: Yes: Breast Exam Deferred Cardiology: Yes: Regular Rhythm, Regular Rate, S1, S2 Abdominal: Yes: Normal Bowel Sounds, Non Tender, Flat, Soft Genitourinary: Yes: Within Normal Limits Back: Yes: Normal Inspection Musculoskeletal: Yes: full range of Motion, Gait Steady Extremities: Yes: Normal Capillary Refill, Normal Range of Motion, Non-Tender, Tremors (mild tremors of hands when arms elevated.) Neurological: Yes: cardiovascular lab director II-XII NML intact, Fully Oriented, Alert, Motor Strength 5/5, Normal Mood/Affect, Normal Response Integumentary: Yes: Normal Color, Dry (Dry skin), Warm, Rash (grayish rash w/ erythematous base on cheeks and forehead) Lymphatic: Yes: Within Normal Limits - Diagnostic (1) Alcohol dependence in remission Current Visit: Yes Status: Acute (2) Cannabis dependence Current Visit: Yes Status: Chronic (3) HIV (human immunodeficiency virus infection) Current Visit: Yes Status: Chronic (4) Eczema Current Visit: Yes Status: Chronic Qualifiers: Eczema type: unspecified Qualified Code(s): L30.9 - Dermatitis, unspecified (5) Cocaine dependence Current Visit: No Status: Chronic Qualifiers: Substance use status: uncomplicated Qualified Code(s): F14.20 - Cocaine dependence, uncomplicated Cleared for Admission [facility] - Detox or Rehab Claeared for Rehab Admission: Yes [facility] Breath Alcohol Content Breath Alcohol Content: 0 Urine Drug Screen - Results Drug Screen Negative: No Urine Drug Screen Results: BZO-Benzodiazepines Inpatient Rehab Admission - Initial Determination Are CD services needed?: Yes Free of communicable disease: Yes Not in need of hospitalization: Yes - Rehab Admission Criteria Previous failed treatment: Yes Poor recovery environment: Yes Comorbidities: Yes Lacks judgement: No Patient is meeting Inpatient Rehab admission criteria:: Yes
[2018-07-04] MEDS ORDERED: MAGNESIUM CITRATE 300 ML BOTTLE PO PRN (23:14)
[2018-07-04] MEDS ORDERED: MAGNESIUM HYDROX 2400MG/30ML ORAL SUSPENSION 30 ML CUP PO PRN (23:14)
[2018-07-04] MEDS ORDERED: MAG HYDROX/AL HYDROX/SIMETH 30 ML UNIT-DOSE CUP PO PRN (23:14)
[2018-07-04] MEDS ORDERED: guaiFENesin/D-METHORPHAN HB 10 ML UNIT-DOSE CUPS PO PRN (23:14)
[2018-07-04] MEDS ORDERED: MENTHOL/PHENOL 1 EACH UD MM PRN (23:14)
[2018-07-04] MEDS ORDERED: P-EPHED 60MG/TRIPROLIDI 2.5MG TABLET PO PRN (23:14)
[2018-07-04] MEDS ORDERED: LOPERAMIDE HCL 2 MG CAPSULE PO PRN (23:14)
[2018-07-04] MEDS ORDERED: ACETAMINOPHEN 325 MG TABLET (FP) PO PRN (23:14)
[2018-07-04] MEDS ORDERED: AMMONIUM LACTATE 12% LOTION 225 GM BOTTLE TP PRN (23:16)
[2018-07-05] MEDS: MELATONIN 5 MG TABLETS PO PRN (00:17)
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
[2018-07-05] MEDS: PRENATAL VITAMINS W/ FOLIC ACID TABLET (FP) PO SCH (09:55)
[2018-07-05] MEDS: QUEtiapine FUMARATE 300 MG TABLET PO SCH ×2 (10:11→21:16)
[2018-07-05] MEDS: HYDROCORTISONE 2.5% LOTION - 1 BOTTLE TP SCH ×2 (12:51→21:16)
[2018-07-05] MEDS: THIAMINE HCL 100 MG TABLET (FP) PO SCH (21:15)
[2018-07-06] MEDS: QUEtiapine FUMARATE 300 MG TABLET PO SCH ×2 (09:31→21:08)
[2018-07-06] MEDS: PRENATAL VITAMINS W/ FOLIC ACID TABLET (FP) PO SCH (09:31)
[2018-07-06] MEDS: HYDROCORTISONE 2.5% LOTION - 1 BOTTLE TP SCH ×2 (09:32→21:09)
[2018-07-06] MEDS: hydrOXYzine PAMOATE 50 MG CAPSULE (FP) PO PRN (09:32)
[2018-07-06] MEDS: THIAMINE HCL 100 MG TABLET (FP) PO SCH (21:08)
[2018-07-07] MEDS: hydrOXYzine PAMOATE 50 MG CAPSULE (FP) PO PRN (09:31)
[2018-07-07] MEDS: QUEtiapine FUMARATE 300 MG TABLET PO SCH ×2 (09:31→21:12)
[2018-07-07] MEDS: HYDROCORTISONE 2.5% LOTION - 1 BOTTLE TP SCH ×2 (09:31→21:12)
[2018-07-07] MEDS: PRENATAL VITAMINS W/ FOLIC ACID TABLET (FP) PO SCH (09:31)
[2018-07-07] MEDS: THIAMINE HCL 100 MG TABLET (FP) PO SCH (21:12)
[2018-07-08] MEDS: QUEtiapine FUMARATE 300 MG TABLET PO SCH ×2 (10:39→21:21)
[2018-07-08] MEDS: HYDROCORTISONE 2.5% LOTION - 1 BOTTLE TP SCH ×2 (10:39→21:24)
[2018-07-08] MEDS: PRENATAL VITAMINS W/ FOLIC ACID TABLET (FP) PO SCH (10:39)
[2018-07-08] MEDS: THIAMINE HCL 100 MG TABLET (FP) PO SCH (21:21)
[2018-07-09] MEDS: QUEtiapine FUMARATE 300 MG TABLET PO SCH ×2 (10:31→21:27)
[2018-07-09] MEDS: PRENATAL VITAMINS W/ FOLIC ACID TABLET (FP) PO SCH (10:31)
[2018-07-09] MEDS: HYDROCORTISONE 2.5% LOTION - 1 BOTTLE TP SCH ×2 (10:32→22:14)
[2018-07-09] MEDS ORDERED: PT OWN MED DRAWER 7, Y5N ONE ×2 (10:33→19:06)
[2018-07-09] MEDS: THIAMINE HCL 100 MG TABLET (FP) PO SCH (21:27)
[2018-07-10] MEDS: QUEtiapine FUMARATE 300 MG TABLET PO SCH ×2 (10:05→21:18)
[2018-07-10] MEDS: HYDROCORTISONE 2.5% LOTION - 1 BOTTLE TP SCH ×2 (10:05→22:24)
[2018-07-10] MEDS: PRENATAL VITAMINS W/ FOLIC ACID TABLET (FP) PO SCH (10:05)
[2018-07-10] MEDS: ALBUTEROL SO4 8 GM HFA INHALER IH PRN ×2 (10:06→21:20)
[2018-07-10] MEDS: THIAMINE HCL 100 MG TABLET (FP) PO SCH (21:18)
[2018-07-10] MEDS: hydrOXYzine PAMOATE 50 MG CAPSULE (FP) PO PRN (21:20)
[2018-07-11] MEDS: HYDROCORTISONE 2.5% LOTION - 1 BOTTLE TP SCH ×2 (09:53→21:23)
[2018-07-11] MEDS: QUEtiapine FUMARATE 300 MG TABLET PO SCH ×2 (09:53→21:23)
[2018-07-11] MEDS: PRENATAL VITAMINS W/ FOLIC ACID TABLET (FP) PO SCH (09:53)
[2018-07-11] MEDS: IBUPROFEN 400 MG TABLET (FP) PO PRN (19:23)
[2018-07-11] MEDS: THIAMINE HCL 100 MG TABLET (FP) PO SCH (21:23)
[2018-07-12] MEDS: HYDROCORTISONE 2.5% LOTION - 1 BOTTLE TP SCH ×2 (09:50→21:27)
[2018-07-12] MEDS: PRENATAL VITAMINS W/ FOLIC ACID TABLET (FP) PO SCH (09:50)
[2018-07-12] MEDS: QUEtiapine FUMARATE 300 MG TABLET PO SCH ×2 (09:50→21:25)
[2018-07-12] MEDS: ALBUTEROL SO4 8 GM HFA INHALER IH PRN (09:51)
[2018-07-12] MEDS: IBUPROFEN 400 MG TABLET (FP) PO PRN (11:58)
[2018-07-12] MEDS: THIAMINE HCL 100 MG TABLET (FP) PO SCH (21:24)
[2018-07-12] MEDS: BETAMETHASONE VALER 0.1% OINT 15 GM TUBE TP SCH (21:24)
[2018-07-12] MEDS: BACITRACIN 15 GM TUBE TOPICAL OINTMENT TP SCH (21:27)
[2018-07-12] MEDS ORDERED: BETAMETHASONE VALER 0.1% OINT 15 GM TUBE TP SCH (22:00)
[2018-07-12] MEDS ORDERED: TOLNAFTATE 1% CREAM 15 GM TUBE TP SCH ×2 (22:00)
[2018-07-12] MEDS ORDERED: BACITRACIN 15 GM TUBE TOPICAL OINTMENT TP SCH (22:00)
[2018-07-13] MEDS: hydrOXYzine PAMOATE 50 MG CAPSULE (FP) PO PRN (01:17)
[2018-07-13] MEDS: MELATONIN 5 MG TABLETS PO PRN ×2 (01:17→21:21)
[2018-07-13] MEDS: QUEtiapine FUMARATE 300 MG TABLET PO SCH ×2 (09:54→21:20)
[2018-07-13] MEDS: PRENATAL VITAMINS W/ FOLIC ACID TABLET (FP) PO SCH (09:54)
[2018-07-13] MEDS: HYDROCORTISONE 2.5% LOTION - 1 BOTTLE TP SCH ×2 (09:55→21:20)
[2018-07-13] MEDS: BETAMETHASONE VALER 0.1% OINT 15 GM TUBE TP SCH ×2 (09:55→21:21)
[2018-07-13] MEDS: BACITRACIN 15 GM TUBE TOPICAL OINTMENT TP SCH ×2 (09:55→21:20)
[2018-07-13] MEDS: THIAMINE HCL 100 MG TABLET (FP) PO SCH (21:20)
[2018-07-14] MEDS: QUEtiapine FUMARATE 300 MG TABLET PO SCH ×2 (09:44→21:22)
[2018-07-14] MEDS: PRENATAL VITAMINS W/ FOLIC ACID TABLET (FP) PO SCH (09:44)
[2018-07-14] MEDS: BACITRACIN 15 GM TUBE TOPICAL OINTMENT TP SCH ×2 (09:45→21:22)
[2018-07-14] MEDS: hydrOXYzine PAMOATE 50 MG CAPSULE (FP) PO PRN (09:45)
[2018-07-14] MEDS: HYDROCORTISONE 2.5% LOTION - 1 BOTTLE TP SCH ×2 (09:45→21:22)
[2018-07-14] MEDS: BETAMETHASONE VALER 0.1% OINT 15 GM TUBE TP SCH ×2 (09:45→21:23)
[2018-07-14] MEDS: MELATONIN 5 MG TABLETS PO PRN (21:22)
[2018-07-14] MEDS: THIAMINE HCL 100 MG TABLET (FP) PO SCH (21:22)
[2018-07-15] MEDS: ALBUTEROL SO4 8 GM HFA INHALER IH PRN (05:37)
[2018-07-15 06:50] VITALS: BP 124/77; PULSE 115; TEMP 98.2
--- NOTE | 2018-07-15 09:40 | PN ---
Psychiatric Progress Note Vital Signs: Vital Signs Period Temp Pulse Resp BP Sys/Blue Pulse Ox Last 24 Hr 98.2 F 115 16-18 124/77 Date of Session: 07/15/18 Chief Complaint:: "Discharge" HPI: Patient admitted to for alcohol, cocaine, and cannabis dependence. ROS: Significant for HIV infection since 1996 (not on HAART medications), bronchial asthma and eczema Current Medications: Active Medications Generic Name Dose Route Start Last Admin Trade Name Freq PRN Reason Stop Dose Admin Acetaminophen 650 mg 07/04/18 23:14 Tylenol - PO Q4H PRN FEVER Al Hydroxide/Mg Hydroxide 30 ml 07/04/18 23:14 Mylanta Oral Suspension - PO Q6H PRN DYSPEPSIA Albuterol Sulfate 2 puff 07/04/18 23:15 07/15/18 05:37 Ventolin Hfa Inhaler - IH 2 inh Q4H PRN Administration SHORT OF BREATH/WHEEZING Bacitracin 1 applic 07/12/18 22:00 07/14/18 21:22 Bacitracin - TP Not Given BID [facility] Betamethasone Valerate 1 applic 07/12/18 22:00 07/14/18 21:23 Valisone 0.1% Ointment - TP Not Given BID [facility] Eucalyptus/Menthol/Phenol/Sorbitol 1 each 07/04/18 23:14 Cepastat Lozenge - MM Q4H PRN SORE THROAT Guaifenesin 10 ml 07/04/18 23:14 Robitussin Dm - PO Q6H PRN COUGH Hydrocortisone 1 applic 07/05/18 10:00 07/14/18 21:22 Hytone 2.5% Lotion - TP Not Given BID [facility] Hydroxyzine Pamoate 50 mg 07/04/18 23:14 07/14/18 09:45 Vistaril - PO 50 mg Q4H PRN Administration AGITATION Ibuprofen 400 mg 07/04/18 23:14 07/12/18 11:58 Motrin - PO 400 mg Q6H PRN Administration Pain Level 4-6 Lactic Acid 1 applic 07/04/18 23:16 Lac-Hydrin 12 TP BID PRN DRY SKIN Loperamide HCl 4 mg 07/04/18 23:14 Imodium - PO Q6H PRN DIARRHEA Magnesium Citrate 300 ml 07/04/18 23:14 Citroma - PO Q48H PRN CONSTIPATION Magnesium Hydroxide 30 ml 07/04/18 23:14 Milk Of Magnesia - PO DAILY PRN CONSTIPATION Melatonin 10 mg 07/04/18 23:21 07/14/18 21:22 Melatonin PO 10 mg HS PRN Administration INSOMNIA Multivit/Folic Acid/Iron 1 tab 07/05/18 10:00 07/14/18 09:44 Vitamins (Sjr) - PO 1 tab DAILY YARI Administration Pseudoephedrine/Triprolidine 1 combo 07/04/18 23:14 Actifed - PO TID PRN NASAL CONGESTION Quetiapine Fumarate 300 mg 07/05/18 10:00 07/14/18 21:22 Seroquel - PO 300 mg BID YARI Administration Thiamine HCl 100 mg 07/05/18 22:00 07/14/18 21:22 Vitamin B1 - PO 100 mg HS YARI Administration Medication(s) Change(s): No. Current Side Effect: No Lab tests ordered: No Lab tests reviewed: Yes Provider note:: Patient able to complete the rehabilitation program on . He has met his treatment goals and will continue to address his issues at [facility] outpatient program. Through participation of this program he has learned the importance of changing his behaviors and the need for more structure in his life. Patient reports feeling well and states the program has given him a different outlook on life. A 30 day prescription of seroquel 300mg BID will be electronically sent to patient's pharmacy at [facility] [place] [address]. Patient is stable for discharge on 07/15/18. Total face to face time:: 35 Mental Status Exam - Mental Status Exam Alert and Oriented to: Time, Place, Person Cognitive Function: Good Patient Appearance: Well Groomed Mood: Hopeful Affect: Appropriate Patient Behavior: Appropriate, Cooperative Speech Pattern: Clear, Appropriate Voice Loudness: Normal Thought Process: Intact, Goal Oriented Thought Disorder: Not Present Hallucinations: Denies Suicidal Ideation: Denies Homicidal Ideation: Denies Insight/Judgement: Good Sleep: Well Appetite: Good Muscle strength/Tone: Normal Gait/Station: Normal Psychiatric Treatment Plan - Problem List (1) Alcohol dependence Current Visit: Yes (2) Substance-induced sleep disorder Current Visit: Yes (3) Cocaine dependence Current Visit: No Qualifiers: Substance use status: uncomplicated Qualified Code(s): F14.20 - Cocaine dependence, uncomplicated (4) Cannabis dependence Current Visit: Yes (5) Borderline personality disorder Current Visit: No (6) Schizoaffective disorder Current Visit: No Comment: As per self-report. (7) Bipolar I disorder Current Visit: No
[2018-07-15] MEDS: QUEtiapine FUMARATE 300 MG TABLET PO SCH (10:10)
[2018-07-15] MEDS: HYDROCORTISONE 2.5% LOTION - 1 BOTTLE TP SCH (10:10)
[2018-07-15] MEDS: BACITRACIN 15 GM TUBE TOPICAL OINTMENT TP SCH (10:10)
[2018-07-15] MEDS: BETAMETHASONE VALER 0.1% OINT 15 GM TUBE TP SCH (10:10)
[2018-07-15] MEDS: PRENATAL VITAMINS W/ FOLIC ACID TABLET (FP) PO SCH (10:10)
== END 2018-07-15 12:55 | disposition home or self-care (01) | DRG 772 ==
LOC: YASAS 20:28 → Y5N 22:52
PROVIDERS: ADMIT Psychiatry & Neurology Psychiatry; ATTEND Psychiatry & Neurology Psychiatry
PROC: HZ42ZZZ Group Counseling for Substance Abuse Treatment, Cognitive-Behavioral (ICD-10-PCS; principal; 2018-07-04)
DX: F10.20 Alcohol dependence, uncomplicated (principal); F14.20 Cocaine dependence, uncomplicated; F12.20 Cannabis dependence, uncomplicated; F19.282 Other psychoactive substance dependence with psychoactive substance-induced sleep disorder; F25.9 Schizoaffective disorder, unspecified; F31.89 Other bipolar disorder; F60.3 Borderline personality disorder; Z21 Asymptomatic human immunodeficiency virus [HIV] infection status; J45.22 Mild intermittent asthma with status asthmaticus; L85.3 Xerosis cutis; L30.9 Dermatitis, unspecified; Z88.0 Allergy status to penicillin; Z91.013 Allergy to seafood